=== PATIENT | female | born 1960 | race Caucasian/White ===

== ENCOUNTER → 2023-12-22 07:42 | Outpatient (REF) | payer OTHER, SELFPAY | LOC: EMG 07:42 | PROVIDERS: ATTENDING PHYSICIAN Orthopaedic Surgery Hand Surgery | DX: R20.0 Anesthesia of skin (principal) | CPT/HCPCS: 95886; 95911 ==

== ENCOUNTER 2024-06-17 23:59 | Inpatient (IN) | payer OTHER, SELFPAY ==
[2024-06-17 17:24] VITALS: BP 186/97
[2024-06-17 17:53] LABS: % Basophils 0.2 % (0-2); % Immature Granulocytes 0.6 % (0-0.5); % Lymphocytes 3.3 % (20.5-51.1); % Monocytes 2.1 % (1.7-9.3); % Neutrophils 93.8 % (42.2-75.2); Absolute Immature Granulocytes 0.1 10^3/uL (0-0.05); Absolute Lymphocytes 0.6 10^3/uL (1.2-3.4); Absolute Monocytes 0.4 10^3/uL (0.1-0.6); Absolute Neutrophils 16.9 10^3/uL (1.4-6.5); Hematocrit 40.1 % (37.0-47.0); Hemoglobin 13.5 g/dL (12.0-16.0); Mean Corp Hgb Conc. 33.7 g/dL (33.0-37.0); Mean Corpuscular Hgb 32.6 pg (27.0-31.0); Mean Corpuscular Volume 96.9 fL (81.0-99.0); Mean Platelet Volume 8.7 fL (7.4-10.4); Nucleated Red Blood Cells % 0 %; Platelet Count 205 10^3/uL (130-400); Red Blood Cell Count 4.14 10^6/uL (4.20-5.40); Red Cell Dist. Width 12.7 % (11.5-14.5)
[2024-06-17 18:06] LABS: ALT (SGPT) 20 U/L (0-35); AST (SGOT) 30 U/L (14-36); Albumin 4.7 g/dl (3.5-5.0); Alkaline Phosphatase 106 U/L (38-126); Blood Urea Nitrogen 10 mg/dl (7-17); Calcium 9.2 mg/dl (8.4-10.2); Carbon Dioxide 27 mmol/L (22-30); Chloride 92 mmol/L (98-107); Glucose 229 mg/dl (70-99); Potassium 4.6 mmol/L (3.5-5.1); Sodium 129 mmol/L (135-145); Total Bilirubin 0.6 mg/dl (0.2-1.3); Total Protein 7.8 g/dl (6.3-8.2); eGFR > 60.00
[2024-06-17 18:08] LABS: Lipase 45 U/L (23-300)
[2024-06-17 18:17] LABS: COVID-19 Antigen Negative (Negative)
[2024-06-17 18:21] LABS: Troponin I < 0.012 ng/ml
[2024-06-17] MEDS: NSS 1000 IV ×2 (19:06→21:28)
[2024-06-17 19:08] VITALS: BMI 16.2
[2024-06-17 19:09] VITALS: BP 187/97
[2024-06-17] MEDS: DUONEB 3 ML INH (19:14)
[2024-06-17] MEDS: ZOFRAN 4 MG IV ×2 (19:45→21:27)
[2024-06-17 20:00] VITALS: BP 176/85
[2024-06-17 21:00] VITALS: BP 172/93
[2024-06-17] MEDS: DILAUDID 0.25 MG IV (21:28)
[2024-06-17 21:39] LABS: Lactic Acid 0.8 mmol/L (0.7-2.0)
[2024-06-17 21:45] LABS: Urine Albumin 2+ (Neg - Trace); Urine Bilirubin Negative (Negative); Urine Character Clear (Clear); Urine Color Yellow; Urine Glucose 1+ (Negative); Urine Ketone Negative (Negative); Urine Leukocyte Negative (Negative); Urine Nitrite Negative (Negative); Urine Occult Blood 1+ (Negative); Urine Specific Gravity 1.015 (<1.030); Urine Urobilinogen Negative (Neg - 1+)
[2024-06-17 21:59] LABS: Urine Squamous Cell 0-2 /LPF (Few); Urine White Cell 0-2 /HPF (0-5)
--- NOTE | 2024-06-17 22:31 | ED.GENMED ---
History of Present Illness
General
Chief Complaint: Abdominal Pain
Source: patient
Exam Limitations: none
Time Seen by Provider: 06/17/24 18:53
Nursing documentation reviewed up to this point in time: agreed with
History of Present Illness
History of Present Illness:
Patient to ED with complaint of weakness, SOB, cough. States she developed fever and cough 05/30. SHe was seen at and given an antibiotic(doesnt recall name) x 10 days. States she did not improve. Yesterday she contacted her pulmolnologist who
ordered Levaquin. SHe had 1 dose last night. Today she reports severe weakness, worsening cough. Brought to ED by spouse for eval
Past History
Past History
ED Past Medical History: Cancer (left upper lobe lung 16yrs ago. ) and Hypercholesterolemia
ED Past Surgical History: Appendectomy, Cardiac (valve replacement) and Tonsilectomy
Social History
Tobacco: Smoker (occasional cigarette)
Alcohol: Occasional
Drug: Marijuana (3-5 joints/day)
Personal:
Living: with family
Phy Exam
General Physical Exam
General Presentation: moderate distress
General age: appears older than age
General Skin: warm and dry
General Habitus: frail
General Mental: alert
Cardiovascular Exam
Cardiovascular Exam: regular rate/rhythm
Pulmonary Exam
Pulmonary Exam: no respiratory distress, chest non tender, no rhonchi (JOSE CARLOS) and decreased breath sounds
Musculoskeletal Exam
Musculoskeletal Exam: full ROM and neuro vasc intact
Skin Exam
Skin Exam: warm/dry and no rash
Psychiatric Exam
Psychiatric Exam: normal mood/affect
Course
Orders/Labs/Results
Orders:
Orders
06/17/24 17:13
EKG [Electrocardiogram (*1)] Urgent
Reason for Study: Chest Pain
EKG- Treatment ONCE
06/17/24 17:40
COVID-19 Antigen Urgent
Source: Nasal Swab
Complete Blood Count/With Diff Urgent
Comprehensive Metabolic Panel Urgent
Lipase Urgent
Troponin I Urgent
Influenza A+B Rapid Molecular Urgent
ANGELIKA Source: Nasal Swab
Specimen Description:
06/17/24 19:01
0.9% Sodium Chloride 1000 ml [Nss] 1,000 ml IV BOLUS
Ipratropium/Albuterol Sulfate [Duoneb] 3 ml INH R NOW STA
CR Chest - 2 Views Urgent
Comment:
Reason For Exam: cough, SOB
06/17/24 19:43
Ondansetron Injectable [Zofran] 4 mg .ROUTE .ST-MED ONE
06/17/24 19:44
Ondansetron Injectable [Zofran] 4 mg IV NOW STA
06/17/24 21:18
US Abdomen Complete/Upper Urgent
Comment:
Reason For Exam: upper abd. pain
06/17/24 21:19
0.9% Sodium Chloride 1000 ml [Nss] 1,000 ml IV BOLUS
HYDROmorphone [Dilaudid] 0.25 mg IV NOW STA
Ondansetron Injectable [Zofran] 4 mg IV NOW STA
06/17/24 21:20
Lactate Level [Lactic Acid] Urgent
06/17/24 21:37
Urinalysis Reflex To Culture Urgent
Date Specimen was Collected: 06/17/24
Time Specimen was Collected: 21:36
Urine Microscopic Reflex Cult Urgent
06/17/24 22:48
Azithromycin 500 mg/250 ml [Zithromax Infusion] 500 mg in 250 ml IV NOW
CefTRIAXone [Rocephin] 1,000 mg IV NOW STA
06/17/24 23:32
Norovirus by PCR Routine
ANGELIKA Source: Feces/Stool
Specimen Description:
06/17/24 23:45
Admit/Transfer Patient As Directed
Co-Sign Provider:
Level of Care: Inpatient admission
Assign to:: Medical/Surgical
Physician / Group: Wisam Liu
Diagnosis: Sepsis, PNA
Reason for Hospitalization: Sepsis, PNA
Expected length of stay greater than two midnights?: Yes
ELOS- Estimated Length of Stay in days: 3
I certify the patient meets the requirements for IP care: Yes
PRN Pain Medication Management As Directed
May give lesser potent ordered pain med per pt: Yes
preference::
Protocol:: Medication orders for pain may be administered in a
manner that supports deferring to patient preference
when the pt is:
- Requesting an ordered lesser potent pain medication.
Least to most potent pain medications are defined
as: acetaminophen < NSAID < tramadol < opioids
(morphine, oxycodone, hydromorphone).
- Requesting a lesser dose of the same medication IF
ORDERED.
- Requesting a less intrusive route of administration
if both routes are prescribed by the provider (PO <
IV).
06/17/24 23:47
Code Status As Directed
Resuscitation Status: Do not resuscitate
Reached after discussion with pt or family/Healthcare POA: Yes
Decision communicated with: patient
DNR Bracelet Application ONCE
06/18/24 01:21
Acetaminophen [Tylenol] 650 mg PO Q4HPRN PRN
Ipratropium/Albuterol Sulfate [Duoneb] 3 ml INH R Q4HPRN PRN
Ondansetron Injectable [Zofran] 4 mg IV Q6HPRN PRN
06/18/24 01:21
Activity As Directed
Activity Level: Ambulate
Vital Signs As Directed
Frequency: Per unit guidelines
DX Deep Vein Thrombosis Video Routine
06/18/24 Breakfast
Cholesterol Lowering
At Your Request: Full Participation
Fluid Restriction: 1200 mL/day (40 oz)
Cholesterol Lowering: Sodium, 2 Gram
06/18/24 07:58
Basic Metabolic Panel IN AM
Complete Blood Count/No Diff IN AM
06/18/24 08:00
Benzonatate [Tessalon Perles] 200 mg PO TID
06/18/24 18:00
Enoxaparin Sodium [Lovenox] 40 mg SC QPM
06/18/24 22:00
Atorvastatin [Lipitor] 20 mg PO HS
06/19/24 00:00
CefTRIAXone [Rocephin] 1,000 mg IV Q24H
06/19/24 06:00
Basic Metabolic Panel IN AM
Complete Blood Count/No Diff IN AM
06/19/24 08:00
Azithromycin [Zithromax] 500 mg PO DAILY@0800
06/20/24 06:00
Basic Metabolic Panel IN AM
Complete Blood Count/No Diff IN AM
Abnormal Lab Results
06/17/24 06/17/24
17:40 21:37
WBC 18.0 H 10^3/uL
(4.8-10.8)
RBC 4.14 L 10^6/uL
(4.20-5.40)
MCH 32.6 H pg
(27.0-31.0)
Abs Immat Gran (auto) 0.1 H 10^3/uL
(0-0.05)
Absolute Neuts (auto) 16.9 H 10^3/uL
(1.4-6.5)
Absolute Lymphs (auto) 0.6 L 10^3/uL
(1.2-3.4)
Immature Gran % 0.6 H %
(0-0.5)
Neutrophils % 93.8 H %
(42.2-75.2)
Lymphocytes % 3.3 L %
(20.5-51.1)
Sodium 129 L mmol/L
(135-145)
Chloride 92 L mmol/L
(98-107)
Creatinine 0.5 L mg/dL
(0.6-1.0)
Glucose 229 H mg/dl
(70-99)
Ur Occult Blood Reflex 1+ A
(Negative)
Urine RBC 3-6 A /HPF
(0-2)
Urine Glucose 1+ A
(Negative)
Urine Albumin (Reflex) 2+ A
(Neg - Trace)
06/17/24 17:40
06/17/24 17:40
Vital Signs
Initial and Last Documented VS:
Initial Vital Signs
Temp Pulse Resp BP Pulse Ox
98.1 F 103 18 186/97 100
06/17/24 17:24 06/17/24 17:24 06/17/24 17:24 06/17/24 17:24 06/17/24 17:24
Last Documented Vital Signs
Temp Pulse Resp BP Pulse Ox
98.5 F 84 16 143/68 96
06/18/24 15:00 06/18/24 18:32 06/18/24 17:32 06/18/24 18:32 06/18/24 15:00
*Radiology
Radiology exam reviewed: radiology read reviewed
*Pulse Oximetry
Patient hypoxic: no
*Critical Care Note
Total Time (30-74mins, 75-104mins- exclusive of procedures): Not Applicable
Update Note
Update Note:
Patient to ED with complaint of extreme weakness, SOB, cough. States she has had symptoms since . COmpleted a 10day antibiotic course without improvement. Given rx for Levaquin last PM by picker packer. States she feels worse today.
Labs reviewed. WBC 18, lactic normal. Na 129. Afebrile. CXR with left apex post treatment changes although pneumonia or mass can not be excluded. SHe had a left upper lobe mass removed approx 16yrs ago. NO chemo or radiation. Case discussed
marshall Choudhary. Will place on IV antibiotics for pneumonia, continue IVF. Abdominal ultrasound performed for upper abdominal discomfort. She believes this is due to frequent cough. Questionable left renal mass which will require further
imaging, no other concerning findings. Will admit for hospitalist for weakness, pneumonia, hyponatremia
ED Attending Note
-
Portions of this chart may have been created with voice recognition software.� Occasional wrong word or��sound alike� substitutions may have occurred due to the inherent limitations of voice recognition software.
Discharge Plan
Departure
Patient Disposition: Admit
Date of Disposition: 06/17/24
Time of Disposition: 22:47
Presentation/result/management discussed w/ accepting MD/DO: Hospitalist
Condition: Fair
Covid-19: Not Applicable
Discharge Problem:
Pneumonia, Acute hyponatremia, Weakness
Interventions
Interventions:
*Risk Screen - Suicide Last Done: 06/17/24 17:24
*General Assessment Last Done: 06/17/24 17:24
*Neglect/Abuse Screening Last Done: 06/17/24 17:24
ED- Fall Risk Assessment Last Done: 06/18/24 01:20
*ED COVID-19 Vaccine History Last Done: 06/17/24 17:24
*Nursing Disposition Last Done: 06/18/24 01:20
OQ-Vfkpwh-Hujquaqmjl Assessment Last Done: 06/18/24 00:18
Discharge Date and Time
Discharge Date/Time: 06/18/24 01:20
[2024-06-17 22:32] VITALS: BP 172/95
[2024-06-17 23:00] VITALS: BP 166/87
--- NOTE | 2024-06-17 23:04 | HPS.HSE ---
Addendum entered and electronically signed by Wisam Liu DO 06/18/24 01:22:
Addendum: Note - hyponatremia with no prior values for comparison. Acuity is unclear.
Addendum entered and electronically signed by Wisam Liu, 06/18/24 00:46:
Patient seen and examined independently. Agree with findings and plan as set forth by ROCKY Bateman.
Patient is a 64y F with PMH significant for lung cancer s/p left upper lobectomy who presents to ED complaining of cough and intermittent fever x 2-3 weeks. Patient states that cough is productive of green-yellow mucus. No hemoptysis.
Intermittent fevers / chills. She has also had some symptoms of nausea and loose stools. She had an episode of non-bloody emesis here in the ED this evening.
Ass:
Sepsis
Pulm v GI Source
Chronic Hyponatremia
History of Lung Cancer
Left Renal Lesion
Plan:
Admit for further evaluation and treatment.
IV abx for now for coverage of possible JOSE CARLOS process (no prior films to compare - ? chronic changes v underlying pneumonia).
COVID / Influenza negative in the ED.
Abdominal US unremarkable - with exception of L renal lesion.
Patient informed of findings and recommendation for outpatient dedicated renal CT scan.
Check Norovirus status given GI symptoms.
Fluid restriction for hyponatremia - chronic hyponatremia likely due to SIADH / chronic pulmonary process.
Follow for clinical improvement and / or development of any worsening / focal complaints.
Original Note:
Family Physician
-
Family Physician: INTERVIEWE UNKNOWN - PT NOT
Chief Complaint
-
weakness and cough
History of Present Illness
Patient is a 64-year-old female with past medical history significant for hyperlipidemia who presented to [place] ED for evaluation of on going productive cough since weekend prior to . Patient reports that she has had ongoing
shortness of breath, productive cough with now associated fever. Patient reports intermittent fevers, chills, nausea and diarrhea. States today she had severe weakness and lethargy that is new. She denies any chest pain, palpitations, constipation
or urinary symptoms.
Medical History
Past Medical History
Past Medical History: Reports Other
Additional Past Medical History:
hyperlipidemia
Hx lung cancer (2016)
Past Surgical History: Reports Other
Additional Past Surgical History:
trigger finger - Lt thumb and middle finger (01/22/2024)
appendectomy
tonsillectomy
cardiac valve replacement
Social History
Tobacco: Smoker (less than half pack a day )
Alcohol: None
Drug: Marijuana (smokes daily)
Personal:
Living: With Family
Employment: Employed
Family History
Family History: Other (Mother: Breast cancer; Father: Prostate cancer, CAD and DM)
Allergies / Home Medications
Allergies reflects when Allergies were last updated in [employer].
Home Medications with original date entered in [employer]
Allergy/Medication List:
Allergies
Allergy/AdvReac Type Severity Reaction Status Date / Time
No Known Allergies Allergy Verified 06/17/24 19:08
Home Medications
acetaminophen 650 mg tablet,extended release (Tylenol Arthritis Pain) 1,300 mg PO HS 06/17/24
atorvastatin 20 mg tablet 20 mg PO HS 06/17/24
benzonatate 200 mg capsule 200 mg PO TID 06/17/24
ipratropium 0.5 mg-albuterol 3 mg (2.5 mg base)/3 mL nebulization soln 3 ml inhalation R Q6HPRN PRN sob 06/17/24
levofloxacin 750 mg tablet 750 mg PO HS 06/17/24
therapeutic multivitamin 1 tab PO HS 06/17/24
Review of Systems
-
History Source: Patient
Constitutional: Reports Fever, Fatigue and Chills
EENT: Reports No Symptoms
Respiratory: Reports Cough and Trouble Breathing (shortness of breath)
Cardiac: Reports No Symptoms
Abdomen/GI: Reports Nausea and Diarrhea
: Reports No Symptoms
Musculoskeletal: Reports No Symptoms
Skin: Reports No Symptoms
Neurological: Reports No Symptoms
Endocrine: Reports No Symptoms
Hematologic/Lymphatic: Reports No Symptoms
Psych: Reports No Symptoms
Physical Exam
Vital Signs
Vital Signs
Temp Pulse Resp BP Pulse Ox
98.6 F 103 18 187/97 99
06/17/24 21:20 06/17/24 17:24 06/17/24 17:24 06/17/24 19:09 06/17/24 22:30
Physical Exam
General: Well Developed and Conversant
HEENT: NormoCephalic, Moist mucous membranes, Atraumatic, [place] Conjunctivae, Nose Appears Normal and Ears Appear Normal
Respiratory: Clear, Wheezes, Rhonchi and Decreased Breath Sounds
Cardiac: S1/S2 and Regular Rhythm; No Murmur, Rub or Gallop
Breast: Deferred by me
GI: Soft, Non Tender, Non Distended and Normal Bowel Sounds; No Organomegaly
Rectal: Deferred by Provider
Genito-urinary: Deferred by me
Musculoskeletal: No Clubbing, No Cyanosis and No Edema
Skin: Warm and IV/Catheter Site; No Rash
Neuro: AO x 3 and Nonfocal/grossly intact
Hematologic/Lymphatic: No Lymphadenopathy
Psych: Intact Judgment/Insight
Laboratory Results
-
06/17/24 17:40
06/17/24 17:40
Laboratory Results
Lactic Acid 0.8 mmol/L (0.7-2.0) 06/17/24 21:20
Total Bilirubin 0.6 mg/dl (0.2-1.3) 06/17/24 17:40
AST 30 U/L (14-36) 06/17/24 17:40
ALT 20 U/L (0-35) 06/17/24 17:40
Alkaline Phosphatase 106 U/L (38-126) 06/17/24 17:40
Troponin I < 0.012 ng/ml 06/17/24 17:40
Lipase 45 U/L (23-300) 06/17/24 17:40
Data Reviewed
-
Diagnostic Radiology: Report Reviewed by me (CXR: No convincing acute cardiopulmonary process. Probable posttreatment changes at the left apex. Underlying pneumonia or residual mass cannot be definitely excluded.)
CT Scan: Report Reviewed by me
Ultrasound: Report Reviewed by me (Abd: 1. No definite acute process in the abdomen identified sonographically. 2. Questionable left renal mass. Recommend outpatient workup with dedicated renal mass protocol CT abdomen.)
Medical Tests (Nuc Med, Echo, EKG etc): Report Reviewed by me (EKG: NORMAL SINUS RHYTHM MODERATE VOLTAGE CRITERIA FOR LVH, MAY BE NORMAL VARIANT ( Sokolow-Hernandez , [employer] product ))
Lab Data: Labs Reviewed by me (WBC 18.0, Na+ 129, )
Impression/Plan
-
IMPRESSION/PLAN:
#Sepsis?
#severe weakness, productive cough, nausea, diarrhea
WBC 18.0, HR 103
Patient reports symptoms present for 2.5 weeks and worsening
Covid and Influenza negative
CXR: No convincing acute cardiopulmonary process. Probable posttreatment changes at the left apex. Underlying pneumonia or residual mass cannot be definitely excluded.
Abd US: 1. No definite acute process in the abdomen identified sonographically.
2. Questionable left renal mass. Recommend outpatient workup with dedicated renal mass protocol CT abdomen.
- Admit to med/surg
- Norovirus pending
- IV antibiotics
- antiemetics
- PRN DuoNeb
#hyponatremia
Na+ 129
- fluid restriction 1200cc
- monitor BMP
#hyperlipidemia
- continue atorvastatin
#nicotine dependency
reports smoking approximately 0.25 pack per day
denies want for nicotine replacement
- encourage cessation
#Hx lung cancer (2016)
CXR: No convincing acute cardiopulmonary process. Probable posttreatment changes at the left apex. Underlying pneumonia or residual mass cannot be definitely excluded.
- recommend out patient follow up
#Questionable left renal mass
US: 1. No definite acute process in the abdomen identified sonographically.
2. Questionable left renal mass. Recommend outpatient workup with dedicated renal mass protocol CT abdomen.
- recommend out patient follow up
Code Status: DNR
DVT Prophylaxis: Lovenox Sq
[2024-06-18] VITALS (7 sets, daily range): BP systolic 116–179; BP diastolic 66–91; BMI 15.4
[2024-06-18] MEDS: ZITHROMAX INFUSION 250 IV (00:06)
[2024-06-18] MEDS: ROCEPHIN 1000 MG IV (00:06)
--- NOTE | 2024-06-18 01:30 | PTCARENOTE ---
Patient arrived to unit via stretcher accompanied by ED PCT, transferred from stretcher to bed without difficulty. Nursing assessment completed and as documented. Instructed use of call joyce and within use, oriented to room/facility, care ongoing.
[2024-06-18 08:09] LABS: Hematocrit 34.2 % (37.0-47.0); Hemoglobin 11.7 g/dL (12.0-16.0); Mean Corp Hgb Conc. 34.2 g/dL (33.0-37.0); Mean Corpuscular Hgb 32.7 pg (27.0-31.0); Mean Corpuscular Volume 95.5 fL (81.0-99.0); Mean Platelet Volume 8.7 fL (7.4-10.4); Platelet Count 198 10^3/uL (130-400); Red Blood Cell Count 3.58 10^6/uL (4.20-5.40); Red Cell Dist. Width 12.6 % (11.5-14.5); White Blood Cell Count 19.1 10^3/uL (4.8-10.8)
[2024-06-18 08:44] LABS: Blood Urea Nitrogen 8 mg/dl (7-17); Calcium 7.7 mg/dl (8.4-10.2); Carbon Dioxide 24 mmol/L (22-30); Chloride 97 mmol/L (98-107); Estimated Creatinine Clearance 57 ml/min; Glucose 146 mg/dl (70-99); Potassium 3.5 mmol/L (3.5-5.1); Sodium 131 mmol/L (135-145); eGFR > 60.00
[2024-06-18] MEDS: MORPHINE SULFATE 2 MG IV ×2 (08:58→20:05)
[2024-06-18] MEDS: TESSALON PERLES 200 MG PO ×3 (09:39→21:57)
--- NOTE | 2024-06-18 11:20 | W.PN.HOSP.TC ---
Today's Communication/Plan
-
cont abx
pain control
blood pressure control, new medication low dose amlodipine started
Assessment / Plan
Assessment / Plan
Physical Exam
General: No acute distress, appears comfortable appears cachectic
HEENT: NormoCephalic, Moist mucous membranes, Atraumatic
Respiratory: Clear to auscultation b/l
Cardiac: S1/S2 and Regular Rhythm; No Murmur, Rub or Gallop
GI: Soft, Non Tender, Non Distended and Normal Bowel Sounds; No Organomegaly
Musculoskeletal: No Clubbing, No Cyanosis and No Edema
Neuro: AO x 3 and Nonfocal/grossly intact
Psych: Calm Intact Judgment/Insight
#Sepsis
#severe weakness, productive cough, nausea, diarrhea
WBC 18.0, HR 103
Patient reports symptoms present for 2.5 weeks and worsening
Covid and Influenza negative
CXR: No convincing acute cardiopulmonary process. Probable posttreatment changes at the left apex. Underlying pneumonia or residual mass cannot be definitely excluded.
Abd US: 1. No definite acute process in the abdomen identified sonographically.
2. Questionable left renal mass. Recommend outpatient workup with dedicated renal mass protocol CT abdomen.
- Norovirus pending, no further diarrhea since admission
- abx ceftriaxone azithromycin
- antiemetics
- PRN DuoNeb
#hyponatremia
Na+ 129
- fluid restriction 1200cc
- Na since improved 130s
#hyperlipidemia
- continue atorvastatin
#nicotine dependency
reports smoking approximately 0.25 pack per day
denies want for nicotine replacement
- encourage cessation
#Hx lung cancer (2016)
#Abd pain sinus tachy
#Pyelonephritis
CXR: No convincing acute cardiopulmonary process. Probable posttreatment changes at the left apex. Underlying pneumonia or residual mass cannot be definitely excluded.
CT Chest abd/pelvis ruled out PE noted b/l Pyelonephritis already on abx as above, question of possible lung ca recurrence vs chronic changes. CD of images to be provided on discharge for patient to follow up with her outpt providers and compare to
prior imagings
cont abx as above
CHEST CTA:
1. LARGE 9.6 cm CAVITY in the LEFT APICAL HEMITHORAX (superior pleural space or left lung apex) surrounded by a thick rim of soft tissue and pleural thickening. Diagnostic possibilities are (1) RECURRENT LUNG CANCER or (2) severe chronic pleural
thickening/scarring surrounding a cavity from previous lung cancer treatment.
2. Previous left upper lobectomy with severe superior retraction of the left hilum.
3. Severe hyperinflation of the left lower lobe.
4. MODERATE BILATERAL EMPHYSEMA.
5. 1.5 cm centrally cystic pulmonary nodule in the right lower lobe. Diagnostic possibilities are (1) an infectious/inflammatory pulmonary nodule or (2) low-grade lung cancer.
6. Previous aortic valve replacement and CABG surgery.
ABDOMEN and PELVIS:
1. Bilateral striated renal nephrograms suspicious for ACUTE BILATERAL PYELONEPHRITIS. Small bilateral nonobstructing intrarenal calculi and bilateral renal cysts. No CT evidence for hydroureteronephrosis.
2. Mild intrahepatic and extra hepatic biliary dilatation without evidence for obstructing mass.
3. Severe calcific atherosclerotic plaque in the abdominal aorta, iliac, and femoral arteries.
4. Minimal peritoneal fluid in the pelvis.
#Questionable left renal mass
US: 1. No definite acute process in the abdomen identified sonographically.
2. Questionable left renal mass. Recommend outpatient workup with dedicated renal mass protocol CT abdomen.
- CD of images to be provided on discharge for patient to follow up with her outpt providers and compare to prior imagings
#HTN
systolic consistently 170s possibly elevated due to pain
low dose amlodipine 2.5 mg BID started with holding parameters
Code Status: DNR
DVT Prophylaxis: Lovenox Sq
Discussed with patient and patient's Ruiz
I spent a total of 50 minutes with the patient or on the floor. More than 50% of this time involved counseling and coordination of care.
Anticipated Discharge: 24 - 48 hours
Subjective/Interval History
-
Date of Service: June 18, 2024
Seen and examined at bedside in no acute distress resting comfortably in bed. Reports overall improvement in symptoms though general fatigue malaise persists. Abd pain improved with prn morphine.
Objective Data
-
Labs:
Laboratory Results
06/18/24
07:58
WBC 19.1 H
Hgb 11.7 L
Hct 34.2 L
Plt Count 198
Sodium 131 L
Potassium 3.5
Chloride 97 L
Carbon Dioxide 24
BUN 8
Creatinine 0.5 L
Glucose 146 H
Calcium 7.7 L D
Vital Signs:
Vital Signs
Temp Pulse Resp BP Pulse Ox
98.8 F 100 18 161/82 96
06/18/24 07:00 06/18/24 07:00 06/18/24 07:00 06/18/24 07:00 06/18/24 07:00
I&O
06/17/24 06/18/24 06/19/24
06:59 06:59 06:59
Output Total 300 / 300
Balance -300 / -300
[2024-06-18] MEDS: OMNIPAQUE 50 ML PO (11:57)
--- NOTE | 2024-06-18 13:14 | PTCARENOTE ---
report given to 2n rn. transport taking patient via stretcher w/ following.
--- NOTE | 2024-06-18 14:37 | TRANSFER ---
Received patient from [facility] via stretcher. Pt AAOX3. Pox:96% RA. Family at bedside. Call joyce within reach. Plan of care ongoing.
[2024-06-18] MEDS: CALCIUM GLUCONATE 100 IV (15:25)
[2024-06-18] MEDS: FLUSH (NSS) 1 FLUSH IV (15:25)
[2024-06-18] MEDS: LOVENOX 40 MG SC (17:00)
[2024-06-18] MEDS: TYLENOL 650 MG PO (17:04)
[2024-06-18] MEDS: DUONEB 3 ML INH (17:23)
[2024-06-18] MEDS: NORVASC 2.5 MG PO (18:32)
[2024-06-18] MEDS: LIPITOR 20 MG PO (21:57)
[2024-06-19] MEDS: STERILE WATER FOR INJECTION 10 ML IV (00:28)
[2024-06-19] MEDS: ROCEPHIN 1000 MG IV (00:28)
[2024-06-19 07:02] VITALS: BP 130/80
--- NOTE | 2024-06-19 07:13 | W.PN.HOSP.TC ---
Today's Communication/Plan
-
ceftriaxone switched to Augmentin
Fluid restriction relaxed to 64 oz, monitor Na
follow cultures
possible discharge tomorrow if remains stable/cont to improve
Assessment / Plan
Assessment / Plan
Physical Exam
General: No acute distress, appears comfortable appears cachectic
HEENT: NormoCephalic, Moist mucous membranes, Atraumatic
Respiratory: Clear to auscultation b/l
Cardiac: S1/S2 and Regular Rhythm; No Murmur, Rub or Gallop
GI: Soft, Non Tender, Non Distended and Normal Bowel Sounds; No Organomegaly
Musculoskeletal: No Clubbing, No Cyanosis and No Edema
Neuro: AO x 3 and Nonfocal/grossly intact
Psych: Calm Intact Judgment/Insight
#Sepsis
#severe weakness, productive cough, nausea, diarrhea
WBC 18.0, HR 103
Patient reports symptoms present for 2.5 weeks and worsening
Covid and Influenza negative
CXR: No convincing acute cardiopulmonary process. Probable posttreatment changes at the left apex. Underlying pneumonia or residual mass cannot be definitely excluded.
Abd US: 1. No definite acute process in the abdomen identified sonographically.
2. Questionable left renal mass. Recommend outpatient workup with dedicated renal mass protocol CT abdomen.
- Norovirus pending, no further diarrhea since admission
- abx ceftriaxone azithromycin, ceftriaxone switched to Augmentin with overall clinical improvement
- antiemetics
- PRN DuoNeb
-check blood cultures, sputum culture if possible
#hyponatremia
Na+ 129
- fluid restriction 1200cc
- Na since improved 130s
-fluid restriction relaxed to 64 oz
#hyperlipidemia
- continue atorvastatin
#nicotine dependency
reports smoking approximately 0.25 pack per day
denies want for nicotine replacement
- encourage cessation
#Hx lung cancer (2016)
#Abd pain sinus tachy
#Pyelonephritis
CXR: No convincing acute cardiopulmonary process. Probable posttreatment changes at the left apex. Underlying pneumonia or residual mass cannot be definitely excluded.
CT Chest abd/pelvis ruled out PE noted b/l Pyelonephritis already on abx as above, question of possible lung ca recurrence vs chronic changes. CD of images to be provided on discharge for patient to follow up with her outpt providers and compare to
prior imagings
cont abx as above
check urine culture
CHEST CTA:
1. LARGE 9.6 cm CAVITY in the LEFT APICAL HEMITHORAX (superior pleural space or left lung apex) surrounded by a thick rim of soft tissue and pleural thickening. Diagnostic possibilities are (1) RECURRENT LUNG CANCER or (2) severe chronic pleural
thickening/scarring surrounding a cavity from previous lung cancer treatment.
2. Previous left upper lobectomy with severe superior retraction of the left hilum.
3. Severe hyperinflation of the left lower lobe.
4. MODERATE BILATERAL EMPHYSEMA.
5. 1.5 cm centrally cystic pulmonary nodule in the right lower lobe. Diagnostic possibilities are (1) an infectious/inflammatory pulmonary nodule or (2) low-grade lung cancer.
6. Previous aortic valve replacement and CABG surgery.
ABDOMEN and PELVIS:
1. Bilateral striated renal nephrograms suspicious for ACUTE BILATERAL PYELONEPHRITIS. Small bilateral nonobstructing intrarenal calculi and bilateral renal cysts. No CT evidence for hydroureteronephrosis.
2. Mild intrahepatic and extra hepatic biliary dilatation without evidence for obstructing mass.
3. Severe calcific atherosclerotic plaque in the abdominal aorta, iliac, and femoral arteries.
4. Minimal peritoneal fluid in the pelvis.
#Questionable left renal mass
US: 1. No definite acute process in the abdomen identified sonographically.
2. Questionable left renal mass. Recommend outpatient workup with dedicated renal mass protocol CT abdomen.
- CD of images to be provided on discharge for patient to follow up with her outpt providers and compare to prior imagings
#HTN
systolic consistently 170s possibly elevated due to pain
low dose amlodipine 2.5 mg qpm started with holding parameters
Blood pressure since improved
#Severe protein calorie malnutrition associated with chronic illness
dietary eval appreciated
PT/OT appreciated no skilled needs
Code Status: DNR
DVT Prophylaxis: Lovenox Sq
Discussed with patient and patient's Ruiz
I spent a total of 45 minutes with the patient or on the floor. More than 50% of this time involved counseling and coordination of care.
Anticipated Discharge: 24 - 48 hours
Subjective/Interval History
-
Date of Service: June 19, 2024
Seen and examined at bedside in no acute distress resting comfortably in bed. Overall reports feeling well, significantly improved with regards to fatigue and general malaise. Ruiz present during evaluation.
Objective Data
-
Labs:
Laboratory Results
06/19/24
06:25
WBC Pending
Hgb Pending
Hct Pending
Plt Count Pending
Sodium Pending
Potassium Pending
Chloride Pending
Carbon Dioxide Pending
BUN Pending
Creatinine Pending
Glucose Pending
Calcium Pending
Vital Signs:
Vital Signs
Temp Pulse Resp BP Pulse Ox
98.2 F 90 16 130/80 97
06/19/24 07:02 06/19/24 07:02 06/19/24 07:02 06/19/24 07:02 06/19/24 07:02
I&O
06/18/24 06/19/24 06/20/24
06:59 06:59 06:59
Intake Total 240 / 240
Output Total 300 / 300
Balance -300 / -300 240 / 240
[2024-06-19 07:45] LABS: Hematocrit 36.8 % (37.0-47.0); Hemoglobin 12.3 g/dL (12.0-16.0); Mean Corp Hgb Conc. 33.4 g/dL (33.0-37.0); Mean Corpuscular Volume 95.8 fL (81.0-99.0); Mean Platelet Volume 8.6 fL (7.4-10.4); Platelet Count 202 10^3/uL (130-400); Red Blood Cell Count 3.84 10^6/uL (4.20-5.40); Red Cell Dist. Width 12.4 % (11.5-14.5); White Blood Cell Count 13.2 10^3/uL (4.8-10.8)
[2024-06-19 08:23] LABS: Blood Urea Nitrogen 13 mg/dl (7-17); Calcium 8.1 mg/dl (8.4-10.2); Carbon Dioxide 24 mmol/L (22-30); Chloride 95 mmol/L (98-107); Estimated Creatinine Clearance 57 ml/min; Glucose 89 mg/dl (70-99); Magnesium 1.8 mg/dl (1.6-2.3); Phosphorus 2.6 mg/dl (2.5-4.5); Potassium 3.5 mmol/L (3.5-5.1); Sodium 131 mmol/L (135-145); eGFR > 60.00
[2024-06-19] MEDS: ZITHROMAX 500 MG PO (08:34)
[2024-06-19] MEDS: TESSALON PERLES 200 MG PO ×3 (08:34→21:48)
[2024-06-19 08:56] VITALS: BP 136/74; PULSE 96; O2SAT 97
[2024-06-19] MEDS: DUONEB 3 ML INH (08:58)
--- NOTE | 2024-06-19 10:50 | PTCARENOTE ---
Pt' s here to speak with today's MD. Also pt declared that she usually has a low NA and has questions why her diet is restricted.
[2024-06-19] MEDS: AUGMENTIN 875 MG/125 MG 1 TABLET PO ×2 (12:37→21:48)
[2024-06-19 15:00] VITALS: BP 105/79
[2024-06-19] MEDS: LOVENOX 40 MG SC (17:53)
[2024-06-19] MEDS: NORVASC PO (17:56)
[2024-06-19] MEDS: LIPITOR 20 MG PO (21:48)
[2024-06-19 23:25] VITALS: BP 141/78
[2024-06-20 06:02] LABS: Hematocrit 37.1 % (37.0-47.0); Mean Corpuscular Hgb 33.1 pg (27.0-31.0); Mean Corpuscular Volume 94.4 fL (81.0-99.0); Mean Platelet Volume 8.7 fL (7.4-10.4); Platelet Count 205 10^3/uL (130-400); Red Blood Cell Count 3.93 10^6/uL (4.20-5.40); Red Cell Dist. Width 12.3 % (11.5-14.5)
[2024-06-20 06:17] LABS: Blood Urea Nitrogen 9 mg/dl (7-17); Calcium 8.1 mg/dl (8.4-10.2); Carbon Dioxide 26 mmol/L (22-30); Chloride 98 mmol/L (98-107); Estimated Creatinine Clearance 57 ml/min; Glucose 101 mg/dl (70-99); Phosphorus 2.3 mg/dl (2.5-4.5); Potassium 3.2 mmol/L (3.5-5.1); Sodium 132 mmol/L (135-145); eGFR > 60.00
[2024-06-20 07:00] VITALS: BP 123/65
--- NOTE | 2024-06-20 07:14 | W.PN.HOSP.TC ---
Today's Communication/Plan
-
cont abx
bowel rest
IVF
clear liquid diet for now
NPO after midnight for MRCP
Trend Lipase
GI eval
ID eval
pain control, prn antiemetic
Assessment / Plan
Assessment / Plan
Physical Exam
General: No acute distress, appears comfortable appears cachectic
HEENT: NormoCephalic, Moist mucous membranes, Atraumatic
Respiratory: Clear to auscultation b/l
Cardiac: S1/S2 and Regular Rhythm; No Murmur, Rub or Gallop
GI: Soft, Non Tender, Non Distended and Normal Bowel Sounds; No Organomegaly
Musculoskeletal: No Clubbing, No Cyanosis and No Edema
Neuro: AO x 3 and Nonfocal/grossly intact
Psych: Calm Intact Judgment/Insight
#Sepsis
#severe weakness, productive cough, nausea, diarrhea
WBC 18.0, HR 103
Patient reports symptoms present for 2.5 weeks and worsening
Covid and Influenza negative
CXR: No convincing acute cardiopulmonary process. Probable posttreatment changes at the left apex. Underlying pneumonia or residual mass cannot be definitely excluded.
Abd US: 1. No definite acute process in the abdomen identified sonographically.
2. Questionable left renal mass. Recommend outpatient workup with dedicated renal mass protocol CT abdomen.
- Norovirus pending, no further diarrhea since admission
- abx ceftriaxone azithromycin, ceftriaxone switched to Augmentin with overall clinical improvement
- antiemetics
- PRN DuoNeb
-check blood cultures, sputum culture if possible
-ID eval requested
#Severe episodic abd pain with associate elevated lipase
#Pancreatitis
trend lipase
IVF
Clear liquid diet for now, npo after midnight for MRCP
Pain control
GI eval requested
follow up lipid panel in AM
#hyponatremia
Na+ 129
- fluid restriction 1200cc
- Na since improved 130s
-fluid restriction relaxed to 64 oz
#hyperlipidemia
- continue atorvastatin
-follow up lipid panel in AM
#nicotine dependency
reports smoking approximately 0.25 pack per day
denies want for nicotine replacement
- encourage cessation
#Hx lung cancer (2016)
#Abd pain sinus tachy
#Pyelonephritis
CXR: No convincing acute cardiopulmonary process. Probable posttreatment changes at the left apex. Underlying pneumonia or residual mass cannot be definitely excluded.
CT Chest abd/pelvis ruled out PE noted b/l Pyelonephritis already on abx as above, question of possible lung ca recurrence vs chronic changes. CD of images to be provided on discharge for patient to follow up with her outpt providers and compare to
prior imagings
cont abx as above
check urine culture
CHEST CTA:
1. LARGE 9.6 cm CAVITY in the LEFT APICAL HEMITHORAX (superior pleural space or left lung apex) surrounded by a thick rim of soft tissue and pleural thickening. Diagnostic possibilities are (1) RECURRENT LUNG CANCER or (2) severe chronic pleural
thickening/scarring surrounding a cavity from previous lung cancer treatment.
2. Previous left upper lobectomy with severe superior retraction of the left hilum.
3. Severe hyperinflation of the left lower lobe.
4. MODERATE BILATERAL EMPHYSEMA.
5. 1.5 cm centrally cystic pulmonary nodule in the right lower lobe. Diagnostic possibilities are (1) an infectious/inflammatory pulmonary nodule or (2) low-grade lung cancer.
6. Previous aortic valve replacement and CABG surgery.
ABDOMEN and PELVIS:
1. Bilateral striated renal nephrograms suspicious for ACUTE BILATERAL PYELONEPHRITIS. Small bilateral nonobstructing intrarenal calculi and bilateral renal cysts. No CT evidence for hydroureteronephrosis.
2. Mild intrahepatic and extra hepatic biliary dilatation without evidence for obstructing mass.
3. Severe calcific atherosclerotic plaque in the abdominal aorta, iliac, and femoral arteries.
4. Minimal peritoneal fluid in the pelvis.
#Questionable left renal mass
US: 1. No definite acute process in the abdomen identified sonographically.
2. Questionable left renal mass. Recommend outpatient workup with dedicated renal mass protocol CT abdomen.
CD of images to be provided on discharge for patient to follow up with her outpt providers and compare to prior imagings
#HTN
systolic consistently 170s possibly elevated due to pain
low dose amlodipine 2.5 mg qpm started with holding parameters
Blood pressure since improved
#Severe protein calorie malnutrition associated with chronic illness
dietary eval appreciated
PT/OT appreciated no skilled needs
Code Status: DNR
DVT Prophylaxis: Lovenox Sq
Discussed with patient and patient's Ruiz
I spent a total of 50 minutes with the patient or on the floor. More than 50% of this time involved counseling and coordination of care.
Anticipated Discharge: 24 - 48 hours
Subjective/Interval History
-
Date of Service: June 20, 2024
Severe acute abd pain nausea vomiting following breakfast in morning. Pain eventually improved with prn pain meds and bowel rest as day progressed.
Objective Data
-
Labs:
Laboratory Results
06/20/24
05:14
WBC 12.0 H
Hgb 13.0
Hct 37.1
Plt Count 205
Sodium 132 L
Potassium 3.2 L
Chloride 98
Carbon Dioxide 26
BUN 9
Creatinine 0.6
Glucose 101 H
Calcium 8.1 L
Vital Signs:
Vital Signs
Temp Pulse Resp BP Pulse Ox
99.3 F 74 16 141/78 99
06/19/24 23:25 06/19/24 23:25 06/19/24 23:25 06/19/24 23:25 06/19/24 23:25
I&O
06/19/24 06/20/24 06/21/24
06:59 06:59 06:59
Intake Total 240 / 240 1440 / 1440
Balance 240 / 240 1440 / 1440
[2024-06-20] MEDS: ZITHROMAX 500 MG PO (08:28)
[2024-06-20] MEDS: AUGMENTIN 875 MG/125 MG 1 TABLET PO ×2 (08:28→21:02)
[2024-06-20] MEDS: TESSALON PERLES 200 MG PO ×3 (08:28→21:02)
[2024-06-20] MEDS: ZOFRAN 4 MG IV ×2 (09:35→22:07)
[2024-06-20] MEDS: FLUSH (NSS) 2 FLUSH IV ×4 (09:35→12:15)
[2024-06-20] MEDS: MORPHINE SULFATE 2 MG IV (10:38)
--- NOTE | 2024-06-20 10:46 | PTCARENOTE ---
Pt c/o 10/10 right upper abd quad constant sharp pain with nausea. Medicated pt with morphine 2mg for her discomfort. Will cont to monitor.
[2024-06-20] MEDS: POTASSIUM PHOSPHATE 259.0909 MEQ IV (11:21)
[2024-06-20] MEDS: DILAUDID 0.5 MG IV ×2 (11:40→21:26)
--- NOTE | 2024-06-20 11:44 | CM ---
CM met with pt and spouse bedside
They reside in a 2[facility] with 2STE, full flight to 2nd floor
Pt is independent with her ADLs, no ADs
Pt has a working nebulizer at home
Denies financial insecurities
PCP- Dr Franklin Gonzalez
Rx- [facility]
PT/OT following with no recs on dc
Pt noting pain today- physician bedside during end of meeting
CM will remains available if needs on dc
Discharge Disposition- anticipate home no needs
[2024-06-20 12:04] LABS: ALT (SGPT) 24 U/L (0-35); AST (SGOT) 35 U/L (14-36); Albumin 3.7 g/dl (3.5-5.0); Alkaline Phosphatase 82 U/L (38-126); Direct Bilirubin 0.2 mg/dl (0.0-0.4); Total Bilirubin 0.4 mg/dl (0.2-1.3); Total Protein 6.3 g/dl (6.3-8.2)
[2024-06-20 13:41] LABS: Lipase > 4000 U/L (23-300)
[2024-06-20] MEDS: NSS 1000 IV (14:03)
--- NOTE | 2024-06-20 15:04 | CON.ID ---
Consultation
-
Date/Time Consultation Requested: June 20, 2024 1208
Date/Time Consultation Performed: June 20, 2024 1505
Requesting Provider: Dr. Bryce Laguerre
Performing Provider: Dr. Brittney Corona
Reason for Consultation: Sepsis unclear etiology
Chief Complaint / Past History
Chief Complaint
Weakness and cough
History of Present Illness
64-year-old female with tobacco use disorder, COPD, history of left upper lobe lung cancer status post lobectomy in 2015 who presented to the hospital on June 17 with approximately 2-week history of cough and progressive weakness. She reports
she was coughing up green sputum. Positive intermittent fevers and chills. No rhinorrhea or sinus congestion. No sore throat. Also with upper abdominal pain which she attributed from all the coughing. She has had several courses of antibiotic
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 She cannot remember what antibiotic she was prescribed. She did not improve and therefore came to [facility] June 15. White count was 18. Chest x-ray no acute process. She was
started on ceftriaxone and azithromycin and transition to Augmentin and azithromycin. She reports having abnormal bowel movements since diagnosis of pneumonia in the left upper lobe cavitary lesion in March 2023. She has chronic diarrhea.
Norovirus tested negative here. Initial lipase was 45. However repeat lipase over 4000. She continues to have epigastric pain. CT of the abdomen pelvis no acute pancreatitis, no gallstones. Bilateral kidneys venous phase enhancement suspicious
for pyelonephritis. Patient denies dysuria, urinary urgency or frequency, no flank pain.
Past History
Additional Past Medical History:
Hx Lung cancer status post left upper lobe lobectomy 2016 (no chemo/XRT)
Emphysema/COPD
Dyslipidemia
CAD s/p CAGB
AVR
Chronic diarrhea
Appendectomy
Allergy History:
No Known Allergies Allergy (Verified 06/17/24 19:08)
Medications Reviewed: Yes
Current Antibiotics:
Azithromycin d3
Augmentin d4
Social History
Tobacco: Smoker
Alcohol: None
Drug: Marijuana
Personal:
Living: Other (has 6 dogs)
Family History
Family History: Not Pertinent
Review of Systems
Review of Systems
General: Fever, Chills and Change in Appetite
HEENT: Negative Stiff Neck, Sinus Problems, Headache or Pharyngitis
Cardiovascular: Negative Chest Pain or Edema
Respiratory: Dyspnea, Cough and Sputum Production
Gasteroenterology: Negative Nausea or Vomiting
Genital / Urological: Negative Dysuria or Flank Pain
Endocrine: Weakness
Skin / Hair / Nails: Negative Rash
Neurological: Negative Dizziness
All systems: All other systems were reviewed and were negative
Vital Signs
Temp Pulse Resp BP Pulse Ox
98.5 F 92 17 123/65 98
06/20/24 07:00 06/20/24 07:00 06/20/24 07:00 06/20/24 07:00 06/20/24 08:00
Physical Exam
Physical Exam
Constitutional: Comfortable
Head: Other (No frontal or max or sinus tenderness)
Eyes: Sclera Anicteric and Erythema
Pharynx: Benign
Cardiovascular: Regular Rate and S1/S2
Pulmonary: Clear
Gastrointestinal: Soft and Tender (epigastrum)
Genito-Urinary: Negative CVA Tenderness
Extremities: Negative Edema
Neurological: AO x 3
Lab / Diagnostic Study Results
06/20/24 05:14
06/20/24 05:14
Abs Immat Gran (auto) 0.1 10^3/uL (0-0.05) H 06/17/24 17:40
Absolute Neuts (auto) 16.9 10^3/uL (1.4-6.5) H 06/17/24 17:40
Absolute Lymphs (auto) 0.6 10^3/uL (1.2-3.4) L 06/17/24 17:40
Absolute Monos (auto) 0.4 10^3/uL (0.1-0.6) 06/17/24 17:40
Absolute Basos (auto) 0.0 10^3/uL (0-0.2) 06/17/24 17:40
Immature Gran % 0.6 % (0-0.5) H 06/17/24 17:40
Neutrophils % 93.8 % (42.2-75.2) H 06/17/24 17:40
Lymphocytes % 3.3 % (20.5-51.1) L 06/17/24 17:40
Monocytes % 2.1 % (1.7-9.3) 06/17/24 17:40
Eosinophils % 0.0 % (0-6) 06/17/24 17:40
Basophils % 0.2 % (0-2) 06/17/24 17:40
Lactic Acid 0.8 mmol/L (0.7-2.0) 06/17/24 21:20
Ur Squamous Epith Cells 0-2 /LPF (Few) 06/17/24 21:37
Microbiology Results
Micro:
06/19/24 10:25 Urine Culture - Final
Urine NO GROWTH
06/19/24 09:25 Blood Culture - Preliminary
Blood/Venous No Growth in 24 hours- Final report to follow
06/19/24 18:29 - Final
Feces/Stool Negative for Norovirus GI and GII.
06/19/24 10:25 Respiratory Culture - Preliminary
Sputum Gram Stain - Preliminary
06/19/24 08:37 Blood Culture - Preliminary
Blood/Venous No Growth in 24 hours- Final report to follow
06/17/24 17:40 Influenza Types A & B ([facility]) - Final
Nasal Swab Negative for Influenza A & B, NAAT
Negative results must be combined with clinical observations
and patient history.
Nucleic Acid Amplification test (NAAT)performed on the
AWID platform.
06/17/24 CXR: No convincing acute cardiopulmonary process. Probable posttreatment changes at the left apex.
06/17/24 Renal US: No definite acute process in the abdomen identified sonographically.
06/18/24 CT c/a/p: LARGE 9.6 cm CAVITY in the LEFT APICAL HEMITHORAX (superior pleural space or left lung apex) surrounded by a thick rim of soft tissue and pleural thickening. Diagnostic possibilities are (1) RECURRENT LUNG CANCER or (2) severe
chronic pleural thickening/scarring surrounding a cavity from previous lung cancer treatment.Bilateral striated renal nephrograms suspicious for ACUTE BILATERAL PYELONEPHRITIS. Small bilateral nonobstructing intrarenal calculi and bilateral renal
cysts. No CT evidence for hydroureteronephrosis. Mild intrahepatic and extra hepatic biliary dilatation without evidence for obstructing mass.
Assessment / Plan
# Cough
- Suspect bronchitis
- No PNA on imaging
- DC Azithromycin
- Continue Augmentin for now pending respiratory cx
# Leukocytosis - trending down
# No clinical signs of pylonephritis - does not correlate with CT findibngs.
-ucx neg
- neg flank pain
# Epigastic pain
- Lipase >4000.
CT no acute pancreatitis
# hx lung ca s/p CHRISSY lobectomy 2015
-JOSE CARLOS cavity is not new, per pt.
[2024-06-20 15:35] VITALS: BP 144/59
[2024-06-20] MEDS: LOVENOX 40 MG SC (16:59)
[2024-06-20] MEDS: NORVASC 2.5 MG PO (16:59)
[2024-06-20] MEDS: LIPITOR 20 MG PO (21:02)
[2024-06-20 23:54] VITALS: BP 125/70
[2024-06-21] MEDS: NSS 1000 IV ×3 (00:03→21:12)
[2024-06-21 07:19] VITALS: BP 139/67
[2024-06-21 07:44] LABS: Hematocrit 36.9 % (37.0-47.0); Hemoglobin 12.2 g/dL (12.0-16.0); Mean Corp Hgb Conc. 33.1 g/dL (33.0-37.0); Mean Corpuscular Hgb 32.3 pg (27.0-31.0); Mean Corpuscular Volume 97.6 fL (81.0-99.0); Mean Platelet Volume 8.7 fL (7.4-10.4); Platelet Count 175 10^3/uL (130-400); Red Blood Cell Count 3.78 10^6/uL (4.20-5.40); Red Cell Dist. Width 12.5 % (11.5-14.5); White Blood Cell Count 9.6 10^3/uL (4.8-10.8)
[2024-06-21] MEDS: AUGMENTIN 875 MG/125 MG 1 TABLET PO ×2 (07:45→21:11)
[2024-06-21] MEDS: TESSALON PERLES 200 MG PO ×3 (07:45→21:11)
[2024-06-21] MEDS: ZOFRAN 4 MG IV ×2 (07:46→21:11)
[2024-06-21] MEDS: DILAUDID 0.5 MG IV ×2 (08:01→21:11)
[2024-06-21 08:14] LABS: ALT (SGPT) 21 U/L (0-35); AST (SGOT) 28 U/L (14-36); Albumin 3.3 g/dl (3.5-5.0); Alkaline Phosphatase 74 U/L (38-126); Blood Urea Nitrogen 5 mg/dl (7-17); Calcium 7.1 mg/dl (8.4-10.2); Carbon Dioxide 29 mmol/L (22-30); Chloride 101 mmol/L (98-107); Estimated Creatinine Clearance 57 ml/min; Glucose 95 mg/dl (70-99); HDL Cholesterol 40 mg/dl; LDL Cholesterol, Calculated 66 mg/dl; Magnesium 1.9 mg/dl (1.6-2.3); Phosphorus 2.2 mg/dl (2.5-4.5); Potassium 3.6 mmol/L (3.5-5.1); Sodium 135 mmol/L (135-145); Total Bilirubin 0.3 mg/dl (0.2-1.3); Total Cholesterol 125 mg/dl (50-199); Total Protein 5.7 g/dl (6.3-8.2); Triglyceride 98 mg/dl (10-149); Very Low Density Lipoprotein 19 mg/dl (0-30); eGFR > 60.00
[2024-06-21 08:35] LABS: Lipase 3049 U/L (23-300)
--- NOTE | 2024-06-21 08:53 | CON.GI ---
Addendum entered and electronically signed by Juan Pablo Finn DO 06/21/24 13:21:
I saw and examined the patient.
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
Comment: Ms. Fontaine is a 64 y.o female with past medical history of HLD, COPD, history of JOSE CARLOS cancer (s/p prior lobectomy in 2016), and hx of CABG/AVR who initially presented on 06/17 with fevers, cough and progressive weakness. She was admitted
to medicine given concern for sepsis and treated with IV Ceftriaxone and azithromycin felt secondary to suspected bronchitis. She was eventually going to be discharged on 06/20, however developed acute epigastric abdominal pain and found to have an
elevated lipase > 4000s. She denies any prior history of pancreatitis in the past or significant EtOH history. She does note prior bouts of upper abdominal pain for years but denies any known history of pancreatitis, but does not a prior history of
a pancreatic cyst. Denies any unintentional weight loss. However, she does endorse smoking for several years. Of note, prior CT 06/18/2024 revealed mild intrahepatic and extra hepatic biliary dilatation without evidence for obstructing mass. Given
her biliary dilatation and first episode of pancreatitis a MRI/MRCP was performed on 06/21/24 and revealed mild diffuse pancreatic ductal dilatation without evidence for obstructing mass and small pancreatic cysts measuring up to 1.0 cm in size.
Otherwise, no other evidence of necrosis or other ovidio-pancreatic fluid collection, biliary obstruction, choledocholithiasis or other obstruction lesion. Suspicious for possible chronic pancreatitis given her history and mild diffuse PD dilatation
see on MRI/MRCP. Currently, she is improving clinically and tolerating p.o intake with improving abdominal pain.
Recommendations:
- Tolerating CLD, may ADAT to low-fat
- May stop IVF as tolerating p.o intake
- Check fasting lipid panel to r/o hypertriglyceridemia
- Defer hereditary w/u and/or AI testing given her first episode
- Do not need to continue to trend lipases
- Check pancreatic elastase given concern for previous diarrhea and possible EPI
- Would benefit from outpatient follow-up with Dr. Watson to consider EUS as an outpatient given c/f possible chronic pancreatitis given PD dilatation seen on recent MRCP along with further evaluating pancreatic cystic lesions seen on recent MRI
- Encourage smoking cessation along with avoidance of EtOH
- Rest of care as outlined below
GI will continue to follow while inpatient. Thank you for allowing me to participate in the care of this patient. Please do not hesitate to call for any further questions.
Original Note:
Consultation
-
Date/Time Consultation Requested: 06/20/24 1200
Date/Time Consultation Performed: 06/21/24 0850
Requesting Provider: Bryce Laguerre MD
Performing Provider: ROCKY Nieto, Juan Pablo Finn DO
Reason for Consultation: abdominal pain
Medical History
Chief Complaint / HPI
Chief Complaint: abdominal pain
History of Present Illness:
Pt is a 64yo with hx lung CA with prior lobectomy or chemo or XRT, COPD/emphysema, prior CABG/AVR, hypercholesterolemia, appe, with admission 06/17 with leukocytosis, cough, fever, and weakness. LFT were normal. On admission CXR with No
convincing acute cardiopulmonary process. Probable posttreatment changes at the left apex. Underlying pneumonia or residual mass cannot be definitely excluded. US with no acute acute process possible renal mass. Pt then completed follow up CT PE
study with A/p with large cavity in left apical hemithorax with soft tissue thickening with recurrent CA vs thickening/scarring from prior CA, moderate emphysema, pulm nodule(infectious/inflammatory vs low grade CA. Pt also noted with concern for
acute b/l pyelonephritis with small non obstructing calculus and renal cysts no hydroureteronephrosis mild intrahepatic and extra hepatic biliary dilatation without evidence for obstructing mass. No acute pancreatitis and 4.7 mm cyst on uncinate
process of pancreas. She was also noted with lipase greater than 4000.
In further review with patient she was noted with cough and congestion with concern for PNA around thanksgiving. She was treated with abx(pt did not recall meds), Mucinex and Robitussin. She was not better and in contact with her labor delivery rn
with adding nebulizers then eventual second course of abx. She then developed acute on chronic abdominal pain. She admits to years of epigastric pain (/) since her heart surgery but symptoms got worse prior to admission and pain was up to 10/10
on 06/20. She initially though it might be muscular with degree of cough noted. She also admits to vomiting food when pain was severe. She admits to chronic low weight but no recent worsening loss. she has some chronic diarrhea. She otherwise
dysphagia, GERD, constipation, blood or black in stools. hx prior EGD and colonoscopy at [facility].
Past Medical History
Past Medical History: Cancer (lung CA with prior lobectomy no XRT or chemo), COPD (emphysema/COPD) and Other (chronic diarrrha )
Past Surgical History: Appendectomy, Cardiac (AVR, prior CABG) and Tonsilectomy
Social History
Tobacco: Smoker
Alcohol: Occasional (rare last drink in January )
Drug: Marijuana
Personal:
Living: With Family
Employment: Employed
Family History
Family History: Reviewed & Not Pertinent
Allergies / Home Medications
Allergy/AdvReac Type Severity Reaction Status Date / Time
No Known Allergies Allergy Verified 06/17/24 19:08
�Medication �Instructions �Recorded
acetaminophen 650 mg 1,300 mg PO HS Pain 06/17/24
tablet,extended release (Tylenol
Arthritis Pain)
atorvastatin 20 mg tablet 20 mg PO HS High Cholesterol 06/17/24
benzonatate 200 mg capsule 200 mg PO TID Cough 06/17/24
ipratropium 0.5 mg-albuterol 3 mg 3 ml inhalation R Q6HPRN PRN sob 06/17/24
(2.5 mg base)/3 mL nebulization
soln
levofloxacin 750 mg tablet 750 mg PO HS Infection 06/17/24
therapeutic multivitamin 1 tab PO HS Supplement 06/17/24
Review of Systems
-
History Source: Patient
Constitutional: Reports Fever and Weight Loss (chronic low weight )
EENT: Reports No Symptoms
Respiratory: Reports Cough
Cardiac: Reports No Symptoms
Abdomen/GI: Reports Abdominal Pain, Nausea, Vomiting and Diarrhea (chronic )
: Reports No Symptoms
Musculoskeletal: Reports No Symptoms
Skin: Reports No Symptoms
Neurological: Reports Weakness
Endocrine: Reports No Symptoms
Hematologic/Lymphatic: Reports No Symptoms
Vital Signs
Temp Pulse Resp BP Pulse Ox
98.3 F 72 18 139/67 97
06/21/24 07:19 06/21/24 07:19 06/21/24 07:19 06/21/24 07:19 06/21/24 07:19
Physical Exam
Exam
General: No Apparent Distress and Other (thin appearing )
HEENT: Normocephalic and Anicteric
Respiratory: Clear
Cardiac: Regular Rhythm
GI: Soft, Non Distended and Tender (epigastric pain )
Musculoskeletal: No Clubbing and No Cyanosis
Skin: Warm and Dry
Neuro: Awake, Alert and AO x 3
Psych: Calm
Results
WBC 9.6 10^3/uL (4.8-10.8) 06/21/24 07:10
Hgb 12.2 g/dL (12.0-16.0) 06/21/24 07:10
Hct 36.9 % (37.0-47.0) L 06/21/24 07:10
MCV 97.6 fL (81.0-99.0) 06/21/24 07:10
Plt Count 175 10^3/uL (130-400) 06/21/24 07:10
Absolute Neuts (auto) 16.9 10^3/uL (1.4-6.5) H 06/17/24 17:40
Sodium 135 mmol/L (135-145) 06/21/24 07:10
Potassium 3.6 mmol/L (3.5-5.1) 06/21/24 07:10
Chloride 101 mmol/L (98-107) 06/21/24 07:10
Carbon Dioxide 29 mmol/L (22-30) 06/21/24 07:10
BUN 5 mg/dl (7-17) L 06/21/24 07:10
Creatinine 0.6 mg/dL (0.6-1.0) 06/21/24 07:10
Calcium 7.1 mg/dl (8.4-10.2) L 06/21/24 07:10
Total Bilirubin 0.3 mg/dl (0.2-1.3) 06/21/24 07:10
AST 28 U/L (14-36) 06/21/24 07:10
ALT 21 U/L (0-35) 06/21/24 07:10
Alkaline Phosphatase 74 U/L (38-126) 06/21/24 07:10
Lipase 3049 U/L (23-300) H* 06/21/24 07:10
Diagnostic Image Results:
06/17/24 CXR with No convincing acute cardiopulmonary process. Probable posttreatment changes at the left apex. Underlying pneumonia or residual mass cannot be definitely excluded.
06/17/24 US Abdomen Complete/Upper
1. No definite acute process in the abdomen identified sonographically.
2. Questionable left renal mass. Recommend outpatient workup with dedicated renal mass protocol CT abdomen.
CT Pe/abd/pel W
1. LARGE 9.6 cm CAVITY in the LEFT APICAL HEMITHORAX (superior pleural space or left lung apex) surrounded by a thick rim of soft tissue and pleural thickening. Diagnostic possibilities are (1) RECURRENT LUNG CANCER or (2) severe chronic pleural
thickening/scarring surrounding a cavity from previous lung cancer treatment.
2. Previous left upper lobectomy with severe superior retraction of the left hilum.
3. Severe hyperinflation of the left lower lobe.
4. MODERATE BILATERAL EMPHYSEMA.
5. 1.5 cm centrally cystic pulmonary nodule in the right lower lobe. Diagnostic possibilities are (1) an infectious/inflammatory pulmonary nodule or (2) low-grade lung cancer.
6. Previous aortic valve replacement and CABG surgery.
ABDOMEN and PELVIS:
1. Bilateral striated renal nephrograms suspicious for ACUTE BILATERAL PYELONEPHRITIS. Small bilateral nonobstructing intrarenal calculi and bilateral renal cysts. No CT evidence for hydroureteronephrosis.
2. Mild intrahepatic and extra hepatic biliary dilatation without evidence for obstructing mass.
3. Severe calcific atherosclerotic plaque in the abdominal aorta, iliac, and femoral arteries.
4. Minimal peritoneal fluid in the pelvis.
Prior GI Procedures:
EGD: prior at [facility]
Colonoscopy: prior as [facility]
Assessment / Plan
-
Pt is a 64yo with hx lung CA with prior lobectomy or chemo or XRT, COPD/emphysema, prior CABG/AVR, hypercholesterolemia, appe, and chronic abdominal pain and diarrhea with admission 06/17 with leukocytosis, cough, fever, and weakness. She was
recently treated since for PNA and resp issues and now with noted worsening of chronic abdominal pain long with lipase >4000, imaging with
lung finding with prior CA and concern for acute b/l pyelonephritis with small non obstructing calculus and renal cysts no hydroureteronephrosis mild intrahepatic and extra hepatic biliary dilatation without evidence for obstructing mass. No acute
pancreatitis and 4.7 mm cyst on uncinate process of pancreas.
-acute on chronic epigastric abdominal pain with concern for pancreatitis with elevated lipase
-chronic diarrhea
-CT with Mild intrahepatic and extra hepatic biliary dilatation without evidence for obstructing mass
-4.7 mm panc cyst
-sepsis/leukocytosis/fever on admission with recent PNA /bronchitis -abx,neb, Mucinex, Robitussin use
-hx Lung CA with CT noted large cavity in left apical hemithorax with thickening/scarring vs recurrent CA
-US with concern for renal mass
-CT with acute b/l pyonephritis
-tobacco abuse
other med problems:
-COPD/emphysema
-CAD with prior CABG/AVR
-hypercholesterolemia
-appe
PLAN:
etiology of symptoms related to pancreatitis vs secondary to adjacent inflammation with noted b/l hydro vs other
minimal ETOH use last drink in January only new med were recent abx(pt did not recall what she took), no stones noted on US imaging
pt also noted pancreatic cyst, chronic abdominal pain and diarrhea
LFT's remain normal with lipase 3049 today
await MRI imaging for acute issues and eval for chronic pancreatic process and renal mass
if concern for pancreatic process ? acute on chronic with some ongoing abdominal pain - pt continues to smoke
ok for clear diet as some improvement in pain today
cont IVF
ID following g for antibiotics
will follow
Diagnostic Image Results:
06/17/24 CXR with No convincing acute cardiopulmonary process. Probable posttreatment changes at the left apex. Underlying pneumonia or residual mass cannot be definitely excluded.
06/17/24 US Abdomen Complete/Upper
1. No definite acute process in the abdomen identified sonographically.
2. Questionable left renal mass. Recommend outpatient workup with dedicated renal mass protocol CT abdomen.
CT Pe/abd/pel W
1. LARGE 9.6 cm CAVITY in the LEFT APICAL HEMITHORAX (superior pleural space or left lung apex) surrounded by a thick rim of soft tissue and pleural thickening. Diagnostic possibilities are (1) RECURRENT LUNG CANCER or (2) severe chronic pleural
thickening/scarring surrounding a cavity from previous lung cancer treatment.
2. Previous left upper lobectomy with severe superior retraction of the left hilum.
3. Severe hyperinflation of the left lower lobe.
4. MODERATE BILATERAL EMPHYSEMA.
5. 1.5 cm centrally cystic pulmonary nodule in the right lower lobe. Diagnostic possibilities are (1) an infectious/inflammatory pulmonary nodule or (2) low-grade lung cancer.
6. Previous aortic valve replacement and CABG surgery.
ABDOMEN and PELVIS:
1. Bilateral striated renal nephrograms suspicious for ACUTE BILATERAL PYELONEPHRITIS. Small bilateral nonobstructing intrarenal calculi and bilateral renal cysts. No CT evidence for hydroureteronephrosis.
2. Mild intrahepatic and extra hepatic biliary dilatation without evidence for obstructing mass.
3. Severe calcific atherosclerotic plaque in the abdominal aorta, iliac, and femoral arteries.
4. Minimal peritoneal fluid in the pelvis.
-
-
Thank you for consultation and allowing me to participate in the patient's care. Please call the command and control systems integrator GI physician during the after hours with any questions or concerns.
--- NOTE | 2024-06-21 09:20 | W.PN.HOSP.TC ---
Today's Communication/Plan
-
see bold
Assessment / Plan
Assessment / Plan
#Sepsis due to acute bronchitis
#Severe weakness, productive cough, nausea, diarrhea
WBC 18.0, HR 103
Patient reports symptoms present for 2.5 weeks and worsening
Covid and Influenza negative
CXR: No convincing acute cardiopulmonary process. Probable posttreatment changes at the left apex. Underlying pneumonia or residual mass cannot be definitely excluded.
Abd US: 1. No definite acute process in the abdomen identified sonographically.
2. Questionable left renal mass. Recommend outpatient workup with dedicated renal mass protocol CT abdomen.
- Norovirus pending, no further diarrhea since admission
- abx ceftriaxone azithromycin, ceftriaxone switched to Augmentin with overall clinical improvement
- antiemetics
- PRN DuoNeb
-Appreciate ID input, recommend completing Augmentin
#Severe episodic abd pain with associate elevated lipase
#Pancreatitis
#Small pancreatic cyst
Appreciate GI input, low residue diet, IV fluid
Follow-up with GI outpatient for possible EUS for pancreatic cyst
#hyponatremia
Na+ 129 upon admission
- fluid restriction 1200cc
- Na since improved 130s
- Fluid restriction relaxed to 64 oz
#HTN
systolic consistently 170s possibly elevated due to pain
low dose amlodipine 2.5 mg qpm started with holding parameters
Blood pressure since improved
#Severe protein calorie malnutrition associated with chronic illness
dietary eval appreciated
#Hypophosphatemia
Replete by IV and p.o.
#hyperlipidemia
- continue atorvastatin
#nicotine dependency
reports smoking approximately 0.25 pack per day
denies want for nicotine replacement
- encourage cessation
#Hx lung cancer (2016)
CHEST CTA:
1. LARGE 9.6 cm CAVITY in the LEFT APICAL HEMITHORAX (superior pleural space or left lung apex) surrounded by a thick rim of soft tissue and pleural thickening. Diagnostic possibilities are (1) RECURRENT LUNG CANCER or (2) severe chronic pleural
thickening/scarring surrounding a cavity from previous lung cancer treatment.
2. Previous left upper lobectomy with severe superior retraction of the left hilum.
3. Severe hyperinflation of the left lower lobe.
4. MODERATE BILATERAL EMPHYSEMA.
5. 1.5 cm centrally cystic pulmonary nodule in the right lower lobe. Diagnostic possibilities are (1) an infectious/inflammatory pulmonary nodule or (2) low-grade lung cancer.
6. Previous aortic valve replacement and CABG surgery.
ABDOMEN and PELVIS:
1. Bilateral striated renal nephrograms suspicious for ACUTE BILATERAL PYELONEPHRITIS. Small bilateral nonobstructing intrarenal calculi and bilateral renal cysts. No CT evidence for hydroureteronephrosis.
2. Mild intrahepatic and extra hepatic biliary dilatation without evidence for obstructing mass.
3. Severe calcific atherosclerotic plaque in the abdominal aorta, iliac, and femoral arteries.
4. Minimal peritoneal fluid in the pelvis.
#Questionable left renal mass
US: 1. No definite acute process in the abdomen identified sonographically.
2. Questionable left renal mass. Recommend outpatient workup with dedicated renal mass protocol CT abdomen.
CD of images to be provided on discharge for patient to follow up with her outpt providers and compare to prior imagings
PT/OT appreciated no skilled needs
Code Status: DNR
DVT Prophylaxis: Lovenox Sq
Updated on phone 06/21
Total time spent to see the patient on the floor, examine the patient, review data and lab results, discuss treatment plan with patient, nursing staff around 51 minutes.
Physical Exam
General: No acute distress
HEENT: Normocephalic, Atraumatic, EOMI, MMM
Respiratory: Coarse breath sounds
Cardiac: Normal S1/S2, Regular Rate and Rhythm
GI: Soft, tender at the epigastrium, Nondistended, Normal Bowel Sounds
Extremities: No Clubbing, Cyanosis, or Edema
Neuro: Nonfocal/Grossly Intact
Psych: Calm, Cooperative
Derm: No Visible lesions
Anticipated Discharge: 24 - 48 hours
Subjective/Interval History
-
Date of Service: June 21, 2024
Patient reports her cough and epigastric pain have improved. She had some nausea, no vomiting. She feels better. No chest pain, no shortness of breath. No fever.
Objective Data
-
Labs:
Laboratory Results
06/21/24
07:10
WBC 9.6
Hgb 12.2
Hct 36.9 L
Plt Count 175
Sodium 135
Potassium 3.6
Chloride 101
Carbon Dioxide 29
BUN 5 L
Creatinine 0.6
Glucose 95
Calcium 7.1 L
Total Bilirubin 0.3
AST 28
ALT 21
Alkaline Phosphatase 74
Vital Signs:
Vital Signs
Temp Pulse Resp BP Pulse Ox
98.3 F 72 18 139/67 97
06/21/24 07:19 06/21/24 07:19 06/21/24 07:19 06/21/24 07:19 06/21/24 07:19
I&O
06/20/24 06/21/24 06/22/24
06:59 06:59 06:59
Intake Total 1440 / 1440 1690 / 1690
Balance 1440 / 1440 1690 / 1690
[2024-06-21] MEDS: POTASSIUM PHOSPHATE 259.0909 MEQ IV (10:08)
--- NOTE | 2024-06-21 13:52 | W.PN.ID1 ---
Date of Service
Date of Service: June 21, 2024
Today's Communication
Continue Augmentin (d5) through 06/23/24.
ID will sign off.
Assessment / Plan
# Bronchitis -improving
# COPD
- No PNA on imaging
- Sputum C. albicans - not significant
- Continue Augmentin (d5) through 06/23/24.
- Smoking cessation.
# Leukocytosis - resolved
# No clinical signs of pyelonephritis - does not correlate with CT findings.
-ucx neg
- neg flank pain
# Epigastic pain/acute pancreatitis
- Lipase >4000.
- MRI abd: mild diffuse pancreatic dilatation, no biliary obstruction, choledocholithiasis, or cholelithiasis.
- GI following
# hx lung ca s/p CHRISSY lobectomy 2016
-JOSE CARLOS cavity is not new, per pt.
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
Hx Lung cancer status post left upper lobe lobectomy 2015 (no chemo/XRT)
Emphysema/COPD
Dyslipidemia
CAD s/p CABG
AVR
Chronic diarrhea
Appendectomy
Chief Complaint
-: Other (Cough)
Subjective / Review of Systems
Cough is a lot better.
Vital Signs / Physical Exam
Vital Signs
Vital Signs
Temp Pulse Resp BP Pulse Ox
98.3 F 72 18 139/67 97
06/21/24 07:19 06/21/24 07:19 06/21/24 07:19 06/21/24 07:19 06/21/24 10:35
Physical Exam
Constitutional: No Acute Distress and Cachetic
Pulmonary: Clear
Gastrointestinal: Tender (epigastric)
Objective Data
Lab Data
Lab Results
06/21/24 07:10
06/21/24 07:10
Estimated Creat Clear 57 ml/min 06/21/24 07:10
Lactic Acid 0.8 mmol/L (0.7-2.0) 06/17/24 21:20
Total Bilirubin 0.3 mg/dl (0.2-1.3) 06/21/24 07:10
AST 28 U/L (14-36) 06/21/24 07:10
ALT 21 U/L (0-35) 06/21/24 07:10
Alkaline Phosphatase 74 U/L (38-126) 06/21/24 07:10
Most recent labs reviewed.
Micro Results:
06/21/24 12:46 C. difficile GDH Antigen & Toxins - Final
Feces/Stool Negative for toxigenic C.difficile
06/21/24 12:46 Cryptosporidium/Giardia - Final
Feces/Stool Negative for Cryptosporidium and/or Giardia Lamblia
antigens.
06/21/24 12:46 Salmonella/Shigella Culture - Pending
Feces/Stool Campylobacter Culture - Pending
Shiga Toxin Test - Pending
06/19/24 10:25 Respiratory Culture - Final
Sputum Natasha albicans
Gram Stain - Final
06/19/24 09:25 Blood Culture - Preliminary
Blood/Venous No Growth in 48 hours- Final report to follow
06/19/24 08:37 Blood Culture - Preliminary
Blood/Venous No Growth in 48 hours- Final report to follow
06/19/24 10:25 Urine Culture - Final
Urine NO GROWTH
06/19/24 18:29 - Final
Feces/Stool Negative for Norovirus GI and GII.
06/17/24 17:40 Influenza Types A & B (MARIBEL) - Final
Nasal Swab Negative for Influenza A & B, NAAT
Negative results must be combined with clinical observations
and patient history.
Nucleic Acid Amplification test (NAAT)performed on the
[employer] platform.
06/17/24 CXR: No convincing acute cardiopulmonary process. Probable posttreatment changes at the left apex.
06/17/24 Renal US: No definite acute process in the abdomen identified sonographically.
06/18/24 CT c/a/p: LARGE 9.6 cm CAVITY in the LEFT APICAL HEMITHORAX (superior pleural space or left lung apex) surrounded by a thick rim of soft tissue and pleural thickening. Diagnostic possibilities are (1) RECURRENT LUNG CANCER or (2) severe
chronic pleural thickening/scarring surrounding a cavity from previous lung cancer treatment.Bilateral striated renal nephrograms suspicious for ACUTE BILATERAL PYELONEPHRITIS. Small bilateral nonobstructing intrarenal calculi and bilateral renal
cysts. No CT evidence for hydroureteronephrosis. Mild intrahepatic and extra hepatic biliary dilatation without evidence for obstructing mass.
--- NOTE | 2024-06-21 13:59 | PTCARENOTE ---
Pt tolerating clear diet. Denies nausea and abd pain. Pt hungry and asking to advance diet. Reached out to GI and pt placed on low fat diet.
--- NOTE | 2024-06-21 15:33 | CM ---
Patient seen at bedside.
IMM explained & signed.
no needs anticipated.
PLAN: home, no needs anticipated
to transport
[2024-06-21 15:37] VITALS: BP 134/65
[2024-06-21] MEDS: LOVENOX 40 MG SC (17:35)
[2024-06-21] MEDS: NORVASC PO (17:35)
[2024-06-21] MEDS: NEUTRA-PHOS POWDER PACKET 250 MG PO ×2 (17:35→21:11)
[2024-06-21] MEDS: LIPITOR 20 MG PO (21:11)
[2024-06-21 23:39] VITALS: BP 134/65
[2024-06-22] MEDS: TYLENOL 650 MG PO (00:22)
[2024-06-22] MEDS: REGLAN 10 MG IV (00:22)
--- NOTE | 2024-06-22 05:31 | W.PN.GI.CBS2 ---
Today's Communication / Plan
-
Improving symptoms and tolerating low-fat diet. Discussed recent MRI/MRCP findings at bedside and without any ovidio-pancreatic fluid collections or necrosis, however possible acute on chronic pancreatitis. Would benefit from an EUS as an outpatient.
Rest of care as outlined below. GI will sign-off, please call back with any questions or concerns.
Assessment / Plan
-
#Acute, Mild Pancreatitis
#Pancreatic Cystic Lesions
#Acute on Chronic Epigastric Abd Pain
#Bronchitis #COPD
#Hx of [facility] Cancer (s/p JOSE CARLOS lobectomy 2015)
#Tobacco Use
Ms. Fontaine is a 64 y.o female with past medical history of HLD, COPD, history of JOSE CARLOS cancer (s/p prior lobectomy in 2015), and hx of CABG/AVR who initially presented on 06/17 with fevers, cough and progressive weakness. She was admitted to
medicine given concern for sepsis and treated with IV Ceftriaxone and azithromycin felt secondary to suspected bronchitis. She was eventually going to be discharged on 06/20, however developed acute epigastric abdominal pain and found to have an
elevated lipase > 4000s. She denies any prior history of pancreatitis in the past or significant EtOH history. She does note prior bouts of upper abdominal pain for years but denies any known history of pancreatitis, but does not a prior history of
a pancreatic cyst. Denies any unintentional weight loss. However, she does endorse smoking for several years. Etiology unclear and appears consistent with idiopathic, acute mild pancreatitis as MRI/MRCP (-) for sludge/choledocho and no significant
alcohol abuse.
Of note, prior CT 06/18/2024 revealed mild intrahepatic and extra hepatic biliary dilatation without evidence for obstructing mass. Given her biliary dilatation and first episode of pancreatitis a MRI/MRCP was performed on 06/21/24 and revealed mild
diffuse pancreatic ductal dilatation without evidence for obstructing mass and small pancreatic cysts measuring up to 1.0 cm in size. Otherwise, no other evidence of necrosis or other ovidio-pancreatic fluid collection, biliary obstruction,
choledocholithiasis or other obstruction lesion. Suspicious for possible chronic pancreatitis given her history and mild diffuse PD dilatation see on MRI/MRCP. Currently, she is improving clinically and tolerating p.o intake with improving abdominal
pain.
MRI/MRCP 06/21/2024- Impression: Mild diffuse pancreatic ductal dilatation without evidence for obstructing mass, small pancreatic cysts measuring up to 1.0 cm in size, no MRI evidence for pancreatic necrosis, small volume of ascites, no evidence of
biliary obstruction, choledocholithiasis or cholelithiasis, small L pleural effusion
Recommendations:
- Continue low-fat diet as tolerated, continues to improve and tolerating p.o intake
- If tolerating ongoing p.o intake this AM, may stop IVF later this afternoon
- Will obtain lipid panel for completion as well
- Given her MRI/MRCP with mild PD dilatation, suspicious for possible acute on chronic pancreatitis
- Would benefit from an EUS with Dr. Watson as an outpatient given her first episode of pancreatitis along with further assessment of her pancreatic cystic lesions (prior pseudocysts?)
- Have sent a message to our office to coordinate a hospital follow-up visit with Dr. Watson in 6-8 weeks and consideration of EUS as well at that time
- Fecal elastase pending given concern for possible EPI
- Continue ongoing supportive care with anti-emetics PRN
- Limit opioids, continue acetaminophen as needed for pain control
- Discussed smoking cessation along with avoidance of EtOH
- Rest of care as per primary team
Discussed with internal medicine primary team. GI team will sign-off and coordinated outpatient follow-up with Dr. Watson. Please call back with any questions or concerns.
Subjective
Subjective
Date of Service: June 22, 2024
- No acute events overnight
Feeling better this morning, notes she was able to tolerate chicken soup and salad last evening without any nausea/vomiting. Still with mild epigastric discomfort but notes improving symptoms. Passing flatus and having bowel function. No other
fevers or chills. Discussed recent MRI/MRCP findings again with her this AM and plans for outpatient follow-up with Dr. Watson as she will need an eventual EUS.
Objective
Data Reviewed
Laboratory Data:
Laboratory Results
Phosphorus 2.2 mg/dl (2.5-4.5) L 06/21/24 07:10
Magnesium 1.9 mg/dl (1.6-2.3) 06/21/24 07:10
Total Bilirubin 0.3 mg/dl (0.2-1.3) 06/21/24 07:10
AST 28 U/L (14-36) 06/21/24 07:10
ALT 21 U/L (0-35) 06/21/24 07:10
Alkaline Phosphatase 74 U/L (38-126) 06/21/24 07:10
Lipase 3049 U/L (23-300) H* 06/21/24 07:10
Vital Signs and I&O:
Vital Signs
Temp Pulse Resp BP Pulse Ox
98.4 F 78 18 134/65 98
06/21/24 23:39 06/21/24 23:39 06/21/24 23:39 06/21/24 23:39 06/21/24 23:39
I&O
06/20/24 06/21/24 06/22/24
06:59 06:59 06:59
Intake Total 1440 / 1440 1690 / 1690 1620 / 1620
Balance 1440 / 1440 1690 / 1690 1620 / 1620
Physical Exam
Physical Exam
HEENT: Anicteric and Moist mucous membranes
Pulmonary: Other (Normal WOB on room air)
GI: Soft, Non Distended and Other (Minimal tenderness in epigastric region without rebound tenderness or involuntary guarding)
Extremities: No Edema
Neuro: Non Focal
[2024-06-22 07:05] VITALS: BP 136/61
[2024-06-22] MEDS: NSS 1000 IV (07:05)
[2024-06-22 07:24] LABS: Hematocrit 31.7 % (37.0-47.0); Hemoglobin 11.1 g/dL (12.0-16.0); Mean Corpuscular Hgb 32.9 pg (27.0-31.0); Mean Corpuscular Volume 94.1 fL (81.0-99.0); Mean Platelet Volume 9.1 fL (7.4-10.4); Platelet Count 168 10^3/uL (130-400); Red Blood Cell Count 3.37 10^6/uL (4.20-5.40); Red Cell Dist. Width 12.3 % (11.5-14.5); White Blood Cell Count 9.4 10^3/uL (4.8-10.8)
[2024-06-22 08:00] LABS: ALT (SGPT) 24 U/L (0-35); AST (SGOT) 30 U/L (14-36); Albumin 3.1 g/dl (3.5-5.0); Blood Urea Nitrogen 3 mg/dl (7-17); Calcium 6.6 mg/dl (8.4-10.2); Carbon Dioxide 25 mmol/L (22-30); Chloride 103 mmol/L (98-107); Estimated Creatinine Clearance 57 ml/min; Glucose 88 mg/dl (70-99); HDL Cholesterol 41 mg/dl; LDL Cholesterol, Calculated 61 mg/dl; Lipase 1451 U/L (23-300); Magnesium 1.7 mg/dl (1.6-2.3); Potassium 3.5 mmol/L (3.5-5.1); Sodium 133 mmol/L (135-145); Total Bilirubin 0.2 mg/dl (0.2-1.3); Total Cholesterol 117 mg/dl (50-199); Total Protein 5.4 g/dl (6.3-8.2); Triglyceride 79 mg/dl (10-149); Very Low Density Lipoprotein 15 mg/dl (0-30); eGFR > 60.00
[2024-06-22 08:07] LABS: Alkaline Phosphatase 71 U/L (38-126); Phosphorus 2.1 mg/dl (2.5-4.5)
[2024-06-22] MEDS: NEUTRA-PHOS POWDER PACKET 250 MG PO (08:34)
[2024-06-22] MEDS: TESSALON PERLES 200 MG PO ×3 (08:34→21:05)
[2024-06-22] MEDS: AUGMENTIN 875 MG/125 MG 1 TABLET PO ×2 (08:34→21:05)
--- NOTE | 2024-06-22 08:53 | W.PN.HOSP.TC ---
Today's Communication/Plan
-
Possible discharge tomorrow with continued improvement
Assessment / Plan
Assessment / Plan
#Sepsis due to acute bronchitis
#Severe weakness, productive cough, nausea, diarrhea
WBC 18.0, HR 103
Patient reports symptoms present for 2.5 weeks and worsening
Covid and Influenza negative
CXR: No convincing acute cardiopulmonary process. Probable posttreatment changes at the left apex. Underlying pneumonia or residual mass cannot be definitely excluded.
Abd US: 1. No definite acute process in the abdomen identified sonographically.
2. Questionable left renal mass. Recommend outpatient workup with dedicated renal mass protocol CT abdomen.
- Norovirus pending, no further diarrhea since admission
- abx ceftriaxone azithromycin, ceftriaxone switched to Augmentin with overall clinical improvement
- antiemetics
- PRN DuoNeb
-Appreciate ID input, recommend completing Augmentin through 06/23/2024
#Severe episodic abd pain with associate elevated lipase
#Pancreatitis
#Small pancreatic cyst
Appreciate GI input, low residue diet, IV fluid
Follow-up with GI outpatient for EUS for pancreatic cyst
GI signed off
#Hypophosphatemia
Replete by IV and p.o.
#Hypocalcemia
Corrected calcium 6.9
Check vitamin D
Start calcium supplement
#Hyponatremia
Na+ 129 upon admission
- fluid restriction 1200cc
- Na since improved 130s
- Fluid restriction relaxed to 64 oz
#HTN
systolic consistently 170s possibly elevated due to pain
low dose amlodipine 2.5 mg qpm started with holding parameters
Blood pressure since improved
#Severe protein calorie malnutrition associated with chronic illness
dietary eval appreciated
#hyperlipidemia
- continue atorvastatin
#nicotine dependency
reports smoking approximately 0.25 pack per day
denies want for nicotine replacement
- encourage cessation
#Hx lung cancer (2016)
CHEST CTA:
1. LARGE 9.6 cm CAVITY in the LEFT APICAL HEMITHORAX (superior pleural space or left lung apex) surrounded by a thick rim of soft tissue and pleural thickening. Diagnostic possibilities are (1) RECURRENT LUNG CANCER or (2) severe chronic pleural
thickening/scarring surrounding a cavity from previous lung cancer treatment.
2. Previous left upper lobectomy with severe superior retraction of the left hilum.
3. Severe hyperinflation of the left lower lobe.
4. MODERATE BILATERAL EMPHYSEMA.
5. 1.5 cm centrally cystic pulmonary nodule in the right lower lobe. Diagnostic possibilities are (1) an infectious/inflammatory pulmonary nodule or (2) low-grade lung cancer.
6. Previous aortic valve replacement and CABG surgery.
ABDOMEN and PELVIS:
1. Bilateral striated renal nephrograms suspicious for ACUTE BILATERAL PYELONEPHRITIS. Small bilateral nonobstructing intrarenal calculi and bilateral renal cysts. No CT evidence for hydroureteronephrosis.
2. Mild intrahepatic and extra hepatic biliary dilatation without evidence for obstructing mass.
3. Severe calcific atherosclerotic plaque in the abdominal aorta, iliac, and femoral arteries.
4. Minimal peritoneal fluid in the pelvis.
#Questionable left renal mass
US: 1. No definite acute process in the abdomen identified sonographically.
2. Questionable left renal mass. Recommend outpatient workup with dedicated renal mass protocol CT abdomen.
CD of images to be provided on discharge for patient to follow up with her outpt providers and compare to prior imagings
PT/OT appreciated no skilled needs
Code Status: DNR
DVT Prophylaxis: Lovenox Sq
Updated on phone 06/21
Total time spent to see the patient on the floor, examine the patient, review data and lab results, discuss treatment plan with patient, nursing staff around 41 minutes.
Physical Exam
General: No acute distress
HEENT: Normocephalic, Atraumatic, EOMI, MMM
Respiratory: Coarse breath sounds
Cardiac: Normal S1/S2, Regular Rate and Rhythm
GI: Soft, tender at the epigastrium, Nondistended, Normal Bowel Sounds
Extremities: No Clubbing, Cyanosis, or Edema
Neuro: Nonfocal/Grossly Intact
Psych: Calm, Cooperative
Derm: No Visible lesions
Anticipated Discharge: Within 24 hours
Subjective/Interval History
-
Date of Service: June 22, 2024
Patient reports that her abdominal pain is improved. She was nauseous with taking her antibiotics, that resolved. Her cough continues to improve. No fever, no vomiting.
Objective Data
-
Labs:
Laboratory Results
06/22/24
06:44
WBC 9.4
Hgb 11.1 L
Hct 31.7 L
Plt Count 168
Sodium 133 L
Potassium 3.5
Chloride 103
Carbon Dioxide 25
BUN 3 L
Creatinine 0.5 L
Glucose 88
Calcium 6.6 L*
Total Bilirubin 0.2
AST 30
ALT 24
Alkaline Phosphatase 71
Vital Signs:
Vital Signs
Temp Pulse Resp BP Pulse Ox
98.4 F 78 18 134/65 98
06/21/24 23:39 06/21/24 23:39 06/21/24 23:39 06/21/24 23:39 06/21/24 23:39
I&O
06/21/24 06/22/24 06/23/24
06:59 06:59 06:59
Intake Total 1689
Balance 1689 / 1691979
[2024-06-22] MEDS: POTASSIUM PHOSPHATE 259.0909 MEQ IV (09:27)
[2024-06-22] MEDS: NEUTRA-PHOS POWDER PACKET 500 MG PO ×4 (09:27→21:03)
[2024-06-22] MEDS: OSCAL 500 + D 500 MG PO ×3 (11:03→21:03)
--- NOTE | 2024-06-22 13:12 | CM ---
Patient seen at bedside
Calcium 6.6, K 3.5, Na 133
Patient on low fat diet
PLAN: home, no needs anticipated.
to transport
[2024-06-22] MEDS: DILAUDID 0.5 MG IV (15:21)
[2024-06-22 15:25] VITALS: BP 135/66
[2024-06-22] MEDS: LOVENOX 40 MG SC (17:34)
[2024-06-22] MEDS: NORVASC PO (17:35)
[2024-06-22] MEDS: LIPITOR 20 MG PO (21:06)
[2024-06-22] MEDS: NSS IV (21:09)
[2024-06-22 23:16] VITALS: BP 130/70
[2024-06-23] MEDS: DILAUDID 0.5 MG IV (01:01)
[2024-06-23 07:05] VITALS: BP 138/58
[2024-06-23] MEDS: OSCAL 500 + D 500 MG PO ×3 (08:05→21:26)
[2024-06-23] MEDS: AUGMENTIN 875 MG/125 MG 1 TABLET PO ×2 (08:06→20:09)
[2024-06-23] MEDS: TESSALON PERLES 200 MG PO ×3 (08:06→20:09)
[2024-06-23] MEDS: NEUTRA-PHOS POWDER PACKET 500 MG PO ×3 (08:11→17:02)
[2024-06-23 08:13] LABS: Hematocrit 32.2 % (37.0-47.0); Hemoglobin 11.3 g/dL (12.0-16.0); Mean Corp Hgb Conc. 35.1 g/dL (33.0-37.0); Mean Corpuscular Hgb 32.8 pg (27.0-31.0); Mean Corpuscular Volume 93.6 fL (81.0-99.0); Platelet Count 162 10^3/uL (130-400); Red Blood Cell Count 3.44 10^6/uL (4.20-5.40); Red Cell Dist. Width 12.5 % (11.5-14.5); White Blood Cell Count 10.7 10^3/uL (4.8-10.8)
--- NOTE | 2024-06-23 08:55 | W.PN.HOSP.TC ---
Today's Communication/Plan
-
see bold
Assessment / Plan
Assessment / Plan
#Sepsis due to acute bronchitis
#Severe weakness, productive cough, nausea, diarrhea
WBC 18.0, HR 103
Patient reports symptoms present for 2.5 weeks and worsening
Covid and Influenza negative
CXR: No convincing acute cardiopulmonary process. Probable posttreatment changes at the left apex. Underlying pneumonia or residual mass cannot be definitely excluded.
Abd US: 1. No definite acute process in the abdomen identified sonographically.
2. Questionable left renal mass. Recommend outpatient workup with dedicated renal mass protocol CT abdomen.
- Norovirus pending, no further diarrhea since admission
- abx ceftriaxone azithromycin, ceftriaxone switched to Augmentin with overall clinical improvement
- antiemetics
- PRN DuoNeb
- Appreciate ID input, recommend completing Augmentin through 06/23/2024
#Severe episodic abd pain with associate elevated lipase
#Pancreatitis
#Small pancreatic cyst
Appreciate GI input, resolving on IV fluids
Follow-up with GI outpatient for EUS for pancreatic cyst
GI signed off
Patient upset about being on a low-fat diet, will change to regular
#Hypophosphatemia
Repleted and resolved
#Hypocalcemia
Corrected calcium 6.9
Vitamin D level 44.3
Started calcium supplement
#Hyponatremia
Na+ 129 upon admission
- TSH/a.m. cortisol normal
- Sodium 129 again today, will place back on fluid restriction
#Hypomagnesemia
Replete by IV
#HTN
systolic consistently 170s possibly elevated due to pain
low dose amlodipine 2.5 mg qpm started with holding parameters
Blood pressure since improved
#Severe protein calorie malnutrition associated with chronic illness
dietary eval appreciated
Encourage oral intake
#hyperlipidemia
- continue atorvastatin
#nicotine dependency
reports smoking approximately 0.25 pack per day
denies want for nicotine replacement
- encourage cessation
#Hx lung cancer (2016)
CHEST CTA:
1. LARGE 9.6 cm CAVITY in the LEFT APICAL HEMITHORAX (superior pleural space or left lung apex) surrounded by a thick rim of soft tissue and pleural thickening. Diagnostic possibilities are (1) RECURRENT LUNG CANCER or (2) severe chronic pleural
thickening/scarring surrounding a cavity from previous lung cancer treatment.
2. Previous left upper lobectomy with severe superior retraction of the left hilum.
3. Severe hyperinflation of the left lower lobe.
4. MODERATE BILATERAL EMPHYSEMA.
5. 1.5 cm centrally cystic pulmonary nodule in the right lower lobe. Diagnostic possibilities are (1) an infectious/inflammatory pulmonary nodule or (2) low-grade lung cancer.
6. Previous aortic valve replacement and CABG surgery.
ABDOMEN and PELVIS:
1. Bilateral striated renal nephrograms suspicious for ACUTE BILATERAL PYELONEPHRITIS. Small bilateral nonobstructing intrarenal calculi and bilateral renal cysts. No CT evidence for hydroureteronephrosis.
2. Mild intrahepatic and extra hepatic biliary dilatation without evidence for obstructing mass.
3. Severe calcific atherosclerotic plaque in the abdominal aorta, iliac, and femoral arteries.
4. Minimal peritoneal fluid in the pelvis.
#Questionable left renal mass
US: 1. No definite acute process in the abdomen identified sonographically.
2. Questionable left renal mass. Recommend outpatient workup with dedicated renal mass protocol CT abdomen.
CD of images to be provided on discharge for patient to follow up with her outpt providers and compare to prior imagings
PT/OT appreciated no skilled needs
Code Status: DNR
DVT Prophylaxis: Lovenox Sq
Updated on phone 06/23
Total time spent to see the patient on the floor, examine the patient, review data and lab results, discuss treatment plan with patient, nursing staff around 51 minutes.
Physical Exam
General: No acute distress
HEENT: Normocephalic, Atraumatic, EOMI, MMM
Respiratory: Coarse breath sounds
Cardiac: Normal S1/S2, Regular Rate and Rhythm
GI: Soft, tender at the epigastrium, Nondistended, Normal Bowel Sounds
Extremities: No Clubbing, Cyanosis, or Edema
Neuro: Nonfocal/Grossly Intact
Psych: Calm, Cooperative
Derm: No Visible lesions
Anticipated Discharge: Within 24 hours
Subjective/Interval History
-
Date of Service: June 23, 2024
Patient reports having abdominal pain after dinner yesterday, resolved at present. She is frustrated with the limitations of food choices here. She continues to have a dry cough. No nausea, no vomiting. No fever.
Objective Data
-
Labs:
Laboratory Results
06/23/24
06:53
WBC 10.7
Hgb 11.3 L
Hct 32.2 L
Plt Count 162
Sodium Pending
Potassium Pending
Chloride Pending
Carbon Dioxide Pending
BUN Pending
Creatinine Pending
Glucose Pending
Calcium Pending
Total Bilirubin Pending
AST Pending
ALT Pending
Alkaline Phosphatase Pending
Vital Signs:
Vital Signs
Temp Pulse Resp BP Pulse Ox
98.5 F 86 16 130/70 98
06/22/24 23:16 06/22/24 23:16 06/22/24 23:16 06/22/24 23:16 06/23/24 08:38
I&O
06/22/24 06/23/24 06/24/24
06:59 06:59 06:59
Intake Total 1979
Balance 1979
[2024-06-23 09:02] LABS: Vitamin D, 25-OH*** 44.3 ng/mL (30-80)
[2024-06-23 09:12] LABS: ALT (SGPT) 28 U/L (0-35); AST (SGOT) 36 U/L (14-36); Albumin 3.2 g/dl (3.5-5.0); Alkaline Phosphatase 72 U/L (38-126); Blood Urea Nitrogen 3 mg/dl (7-17); Calcium 7.3 mg/dl (8.4-10.2); Carbon Dioxide 25 mmol/L (22-30); Chloride 96 mmol/L (98-107); Estimated Creatinine Clearance 57 ml/min; Glucose 90 mg/dl (70-99); Magnesium 1.5 mg/dl (1.6-2.3); Phosphorus 2.9 mg/dl (2.5-4.5); Potassium 3.8 mmol/L (3.5-5.1); Sodium 129 mmol/L (135-145); Total Bilirubin 0.3 mg/dl (0.2-1.3); Total Protein 5.6 g/dl (6.3-8.2); eGFR > 60.00
[2024-06-23 09:25] LABS: Lipase 622 U/L (23-300)
[2024-06-23] MEDS: MAGNESIUM SULFATE 50 IV (10:07)
[2024-06-23 10:49] LABS: Cortisol, Random 18.4 ug/dl
[2024-06-23] MEDS: NSS 1000 IV ×2 (12:13→23:06)
--- NOTE | 2024-06-23 13:54 | CM ---
Patient seen at bedside.
Patient walking hallway today
regular diet ordered
PLAN: home, no needs anticpated.
to transport
[2024-06-23 15:08] VITALS: BP 156/72
[2024-06-23] MEDS: LOVENOX 40 MG SC (17:01)
[2024-06-23] MEDS: NORVASC 2.5 MG PO (17:02)
[2024-06-23] MEDS: LIPITOR 20 MG PO (20:09)
[2024-06-23 23:11] VITALS: BP 129/68
[2024-06-24 07:25] VITALS: BP 134/69
[2024-06-24] MEDS: NSS 1000 IV (08:05)
[2024-06-24] MEDS: OSCAL 500 + D 500 MG PO (08:05)
[2024-06-24] MEDS: TESSALON PERLES 200 MG PO (08:05)
[2024-06-24 08:26] VITALS: BP 134/69
--- NOTE | 2024-06-24 08:37 | W.PN.HOSP.TC ---
Today's Communication/Plan
-
Discharge today
Assessment / Plan
Assessment / Plan
#Sepsis due to acute bronchitis
#Severe weakness, productive cough, nausea, diarrhea
WBC 18.0, HR 103
Patient reports symptoms present for 2.5 weeks and worsening
Covid and Influenza negative
CXR: No convincing acute cardiopulmonary process. Probable posttreatment changes at the left apex. Underlying pneumonia or residual mass cannot be definitely excluded.
Abd US: 1. No definite acute process in the abdomen identified sonographically.
2. Questionable left renal mass. Recommend outpatient workup with dedicated renal mass protocol CT abdomen.
- Norovirus pending, no further diarrhea since admission
- abx ceftriaxone azithromycin, ceftriaxone switched to Augmentin with overall clinical improvement
- antiemetics
- PRN DuoNeb
- Appreciate ID input, patient has completed a full course of Augmentin as of 06/23/2024
- Medically stable for discharge today, follow-up with PCP in 1 week
#Severe episodic abd pain with associate elevated lipase
#Pancreatitis
#Small pancreatic cyst
Appreciate GI input, resolving on IV fluids. TG normal
Follow-up with GI outpatient for EUS for pancreatic cyst
GI signed off
Patient upset about being on a low-fat diet, will change to regular
#Hypophosphatemia
Repleted and resolved
#Hypocalcemia
Corrected calcium 6.9
Vitamin D level 44.3
Started calcium supplement
#Hyponatremia
Na+ 129 upon admission
- TSH/a.m. cortisol normal
- Sodium 131 today, continue fluid restriction upon discharge
- Needs repeat BMP and mag level with PCP in 1 week
#Hypomagnesemia
Repleted and resolved
#HTN
Systolic consistently 170s possibly elevated due to pain
Blood pressure improved on amlodipine 5 mg daily, this is a new medication, prescription sent to pharmacy
#Severe protein calorie malnutrition associated with chronic illness
dietary eval appreciated
Encourage oral intake
#hyperlipidemia
- continue atorvastatin
#nicotine dependency
reports smoking approximately 0.25 pack per day
denies want for nicotine replacement
- encourage cessation
#Hx lung cancer (2016)
CHEST CTA:
1. LARGE 9.6 cm CAVITY in the LEFT APICAL HEMITHORAX (superior pleural space or left lung apex) surrounded by a thick rim of soft tissue and pleural thickening. Diagnostic possibilities are (1) RECURRENT LUNG CANCER or (2) severe chronic pleural
thickening/scarring surrounding a cavity from previous lung cancer treatment.
2. Previous left upper lobectomy with severe superior retraction of the left hilum.
3. Severe hyperinflation of the left lower lobe.
4. MODERATE BILATERAL EMPHYSEMA.
5. 1.5 cm centrally cystic pulmonary nodule in the right lower lobe. Diagnostic possibilities are (1) an infectious/inflammatory pulmonary nodule or (2) low-grade lung cancer.
6. Previous aortic valve replacement and CABG surgery.
ABDOMEN and PELVIS:
1. Bilateral striated renal nephrograms suspicious for ACUTE BILATERAL PYELONEPHRITIS. Small bilateral nonobstructing intrarenal calculi and bilateral renal cysts. No CT evidence for hydroureteronephrosis.
2. Mild intrahepatic and extra hepatic biliary dilatation without evidence for obstructing mass.
3. Severe calcific atherosclerotic plaque in the abdominal aorta, iliac, and femoral arteries.
4. Minimal peritoneal fluid in the pelvis.
#Questionable left renal mass
US: 1. No definite acute process in the abdomen identified sonographically.
2. Questionable left renal mass. Recommend outpatient workup with dedicated renal mass protocol CT abdomen.
CD of images to be provided on discharge for patient to follow up with her outpt providers and compare to prior imagings
PT/OT appreciated no skilled needs
Code Status: DNR
DVT Prophylaxis: Lovenox Sq
Updated on phone 06/24
Physical Exam
General: No acute distress
HEENT: Normocephalic, Atraumatic, EOMI, MMM
Respiratory: Coarse breath sounds
Cardiac: Normal S1/S2, Regular Rate and Rhythm
GI: Soft, tender at the epigastrium, Nondistended, Normal Bowel Sounds
Extremities: No Clubbing, Cyanosis, or Edema
Neuro: Nonfocal/Grossly Intact
Psych: Calm, Cooperative
Derm: No Visible lesions
Anticipated Discharge: Today
Subjective/Interval History
-
Date of Service: June 23, 2024
Patient's abdominal pain resolved. She ate dinner last night and breakfast this morning without any pain. She was nauseous from the antibiotic. No vomiting. Her cough continues to improve. No chest pain, no shortness of breath. No dyspnea with
activity. No fever.
Objective Data
-
Labs:
Laboratory Results
06/23/24
06:53
WBC 10.7
Hgb 11.3 L
Hct 32.2 L
Plt Count 162
Sodium 129 L
Potassium 3.8
Chloride 96 L
Carbon Dioxide 25
BUN 3 L
Creatinine 0.5 L
Glucose 90
Calcium 7.3 L
Total Bilirubin 0.3
AST 36
ALT 28
Alkaline Phosphatase 72
Vital Signs:
Vital Signs
Temp Pulse Resp BP Pulse Ox
99.2 F 73 18 156/72 96
06/23/24 15:08 06/23/24 17:02 06/23/24 15:08 06/23/24 17:02 06/23/24 15:08
I&O
06/22/24 06/23/24 06/24/24
06:59 06:59 06:59
Intake Total 1979 / 1659
Balance 1979
[2024-06-24 08:40] LABS: Hematocrit 35.7 % (37.0-47.0); Hemoglobin 12.3 g/dL (12.0-16.0); Mean Corp Hgb Conc. 34.5 g/dL (33.0-37.0); Mean Corpuscular Hgb 32.1 pg (27.0-31.0); Mean Corpuscular Volume 93.2 fL (81.0-99.0); Mean Platelet Volume 9.2 fL (7.4-10.4); Platelet Count 199 10^3/uL (130-400); Red Blood Cell Count 3.83 10^6/uL (4.20-5.40); Red Cell Dist. Width 12.5 % (11.5-14.5)
[2024-06-24 09:21] LABS: ALT (SGPT) 28 U/L (0-35); AST (SGOT) 35 U/L (14-36); Albumin 3.5 g/dl (3.5-5.0); Alkaline Phosphatase 73 U/L (38-126); Blood Urea Nitrogen 6 mg/dl (7-17); Calcium 8.2 mg/dl (8.4-10.2); Carbon Dioxide 29 mmol/L (22-30); Chloride 96 mmol/L (98-107); Estimated Creatinine Clearance 57 ml/min; Glucose 87 mg/dl (70-99); Lipase 581 U/L (23-300); Magnesium 1.7 mg/dl (1.6-2.3); Phosphorus 3.9 mg/dl (2.5-4.5); Potassium 4.3 mmol/L (3.5-5.1); Sodium 131 mmol/L (135-145); Total Bilirubin 0.4 mg/dl (0.2-1.3); eGFR > 60.00
--- NOTE | 2024-06-24 10:13 | W.DCSUMMARY ---
Discharge Summary
Discharge Data
Date of Admission: 06/17/24
Date of Discharge: 06/24/24
-
Pending Results: No
Hospital Course
Discharge diagnosis:
Sepsis secondary to acute bronchitis
Severe weakness, productive cough, nausea, diarrhea
Acute pancreatitis
Small pancreatic cyst
Essential hypertension
Hypomagnesemia
Hyponatremia
Hypocalcemia
Severe protein calorie malnutrition associated with chronic illness
Hyperlipidemia
Cigarette nicotine dependency
History of lung cancer
Questionable left renal mass
Consults: GI, ID
Abd MRI:
1. Mild diffuse pancreatic ductal dilatation without evidence for obstructing mass.
2. Small pancreatic cysts measuring up to 1.0 cm in size.
3. No MRI evidence for pancreatic necrosis.
4. Small volume of ascites.
5. No evidence for biliary obstruction, choledocholithiasis, or cholelithiasis.
6. Small left pleural effusion.
Hospital course:
64-year-old female with a past medical history of hyperlipidemia, hypertension, cigarette nicotine dependency, lung cancer status post lobectomy who was admitted for sepsis. Patient was seen in conjunction with ID. ID states that patient does not
have pneumonia, she has bronchitis. She initially received IV antibiotics. ID recommends completing a 5-day course of Augmentin, which she completed in the hospital prior to discharge.
Patient also had nausea, vomiting, abdominal pain. She was found to have acute pancreatitis and a small pancreatic cyst. She was seen in conjunction with GI, and received supportive treatment. After several days, her pancreatitis resolved. She
tolerated a regular diet. GI recommends outpatient follow-up with Dr. Watson for EUS to evaluate her pancreatic cyst.
Patient was found to have hypomagnesemia and hypophosphatemia. These were repleted, and resolved. She also had hypocalcemia. Her vitamin D levels were mildly low. She was started on calcium with vitamin D supplements, which she can continue.
Patient was hypertensive in the hospital. She was started on amlodipine 5 mg daily. Her blood pressure improved. She can continue this upon discharge.
Patient also had hyponatremia, with a sodium as low as 129. TSH and a.m. cortisol were normal. She was treated with a fluid restriction. Her sodium improved to 131. She can continue her 48 ounce fluid restriction upon discharge. She needs a
repeat BMP and Mg level with her PCP in 1 week.
Patient's multiple medical conditions have been optimized. She is medically stable for discharge. She needs to follow-up with her primary care doctor in 1 week, as well as GI in the office as directed.
Disposition: Home self-care
Discharge planning: Required 46 minutes
Discharge Plan
-
Patient Disposition: Home (Routine Discharge)
Discharge Diagnosis/Procedures: Acute bronchitis, pancreatitis, pancreatic cyst, low sodium, low magnesium, low phosphorus, low calcium, low vitamin D
Condition: Good
Diet: Restrict fluids to 48 oz
Activity: As tolerated
Driving Restrictions: As prior to admission
Blood Work: BMP and Mg level with PCP in 1 week
Activity Restrictions/Additional Instructions:
Follow-up with your primary care doctor in 1 week, and GI in the office as scheduled for your pancreatic cyst.
Referrals:
Andrew Watson MD [Active] - 08/16/24 1:00 pm ( GI follow up with Dr. Watson for pancreatitis and pancreatic cyst. )
UNKNOWN - PT NOT,INTERVIEWE [Family Provider] -
Prescriptions:
New
calcium carbonate-vitamin D3 [Oyster Shell Calcium-Vit D3] 500 mg-5 mcg (200 unit) Tablet
1 tab PO TID Qty: 90 0RF
amlodipine 5 mg tablet
5 mg PO DAILY Qty: 30 0RF
Continued
atorvastatin 20 mg Tablet
20 mg PO HS
ipratropium-albuterol 0.5 mg-3 mg(2.5 mg base)/3 mL Solution For Nebulization
3 ml INHALATION R [id number] PRN (Reason: sob)
benzonatate 200 mg Capsule
200 mg PO TID
therapeutic multivitamin Tablet
1 tab PO HS
acetaminophen [Tylenol Arthritis Pain] 650 mg Tablet Extended Release
1,300 mg PO HS
Discontinued
levofloxacin 750 mg Tablet
750 mg PO HS
Discharge Orders:
Discharge Patient (As Directed); Ordered 06/24/24
Ordered By: Albert Larios
Discharge Date and Time
Discharge Date/Time: 06/24/24 11:11
Print Language: SYRIAN
--- NOTE | 2024-06-24 10:29 | CM ---
Patient seen at bedside with
Discharge today.
IMM in chart.
no needs
PLAN: Home, no needs.
to transport
[2024-06-25 07:41] LABS: Pancreatic Elastase, Fecal >800 ug/g (>=100)
== END 2024-06-24 11:11 | disposition home or self-care (01) | DRG 871 ==
LOC: 2 NORTH 23:59
PROVIDERS: Internal Medicine; Nurse Practitioner; Nurse Practitioner Adult Health; Nurse Practitioner Family; ADMITTING PHYSICIAN Hospitalist; ATTENDING PHYSICIAN Family Medicine; CONSULT PHYSICIAN Internal Medicine Infectious Disease; CONSULT PHYSICIAN Student in an Organized Health Care Education/Training Program; EMERGENCY PHYSICIAN Emergency Medicine
DX: A41.9 Sepsis, unspecified organism (principal); E43 Unspecified severe protein-calorie malnutrition; K85.90 Acute pancreatitis without necrosis or infection, unspecified; E22.2 Syndrome of inappropriate secretion of antidiuretic hormone; Z68.1 Body mass index [BMI] 19.9 or less, adult; J44.0 Chronic obstructive pulmonary disease with (acute) lower respiratory infection; K86.2 Cyst of pancreas; R18.8 Other ascites; F17.210 Nicotine dependence, cigarettes, uncomplicated; I10 Essential (primary) hypertension; J20.9 Acute bronchitis, unspecified; E83.42 Hypomagnesemia; E83.51 Hypocalcemia; E83.39 Other disorders of phosphorus metabolism; Z85.118 Personal history of other malignant neoplasm of bronchus and lung
CPT/HCPCS: 71046; 71275; 74177; 74183; 76700; 80048; 80053; 80061; 81003; 81015; 82248; 82306; 82533; 82653; 83605; 83690; 83735; 84100; 84443; 84484; 85025; 85027; 87040; 87045; 87046; 87070; 87086; 87205; 87324; 87328; 87329; 87427; 87449; 87502; 87798; 87811; 93005; 94640; 96361; 96375; 97161; 97165; 99285; 99406; Q9967

== ENCOUNTER 2024-08-31 06:12 | Day surgery (SDC) | payer OTHER, SELFPAY ==
[2024-08-31 08:15] VITALS: BP 122/69
[2024-08-31 08:20] VITALS: BMI 15.9
[2024-08-31 08:36] VITALS: BMI 15.9
[2024-08-31 10:25] VITALS: BP 117/77
[2024-08-31 10:30] VITALS: BP 93/75
[2024-08-31 10:45] VITALS: BP 129/64
[2024-08-31 11:00] VITALS: BP 130/65
== END 2024-08-31 11:26 | disposition home or self-care (01) ==
LOC: SDS 06:12
PROVIDERS: ATTENDING PHYSICIAN Internal Medicine Gastroenterology
DX: K29.50 Unspecified chronic gastritis without bleeding (principal); K86.89 Other specified diseases of pancreas; K86.9 Disease of pancreas, unspecified
CPT/HCPCS: 43237; 43239; 88305; 88342